=== PATIENT | male | born 1960 | race Caucasian/White ===

== ENCOUNTER 2017-05-29 09:31 | Inpatient (IN) | payer OTHER ==
[~2017-05-29] VITALS: Ht 172.7 cm; Wt 52.8 kg
[~2017-05-29 09:31] MED LIST: PROT40TA PO
[2017-05-29 09:33] VITALS: BP 150/84; PULSE 69; RESP 16; TEMP 98.7; O2SAT 96
[2017-05-29] MEDS ORDERED: SODIUM CHLOR 0.9% 1000 ML INJ 1,000 ML IV SCH (09:55)
[2017-05-29] MEDS ORDERED: ZANT150T2 PO (09:56)
[2017-05-29] MEDS ORDERED: PANTOPRAZOLE SODIUM 40 MG VIAL IVP ONE (10:00)
[2017-05-29] MEDS ORDERED: SODIUM CHLORIDE 0.9% FLUSH 10 ML FLUSH IV FLUSH PRN ×2 (10:00→13:00)
[2017-05-29] MEDS ORDERED: ONDANSETRON HCL 4 MG/2 ML VIAL IVP ONE (10:00)
--- NOTE | 2017-05-29 10:03 | PD ---
HPI Chief Complaint: GI Complaint Time Seen by Provider: 09:50 Travel History International Travel<30 days: No Contact w/Intl Traveler<30days: No Traveled to known affect area: No History of Present Illness HPI Patient is 56-year-old male with history of Lizzy fundiplication, achalasia who underwent Elisa's esophagomytomy with partial Toupet wrap, presents to ER with complaints of dysphagia. Patient reports that he has been operated on by Dr. Machado in the past, reports that his last surgery was 2 years ago. Patient reports that he has not follow-up with anyone since then, he does take a Pepcid daily. Patient reports that since Saturday, patient has been having difficulty with swallowing. Reports that his last full meal was Saturday night, he has not been able to eat anything since then. Patient is able to drink fluids with difficulty. Patient here with concerns for dysphagia. PFSH Past Medical History Blood Disorders: No Cancer: No Cardiovascular Problems: No Diminished Hearing: No Endocrine: No Gastrointestinal Disorders: Yes (ESOPHAGEAL STRICTURE) Genitourinary: No Immune Disorder: No Musculoskeletal: Yes Neurologic: No Psychiatric: No Reproductive: No Respiratory: No Past Surgical History Abdominal Surgery: Yes (ACHALASIA. stomach muscle repair, mesh around esophagus ) Pacemaker: No Other Surgery: Yes (TENDON REPAIR LEFT HAND) Social History Alcohol Use: Yes (occ) Tobacco Use: Yes Substance Use: Yes (hx crack cocaine (x 25 years) "Clean x 12 years") Allergies-Medications (Allergen,Severity, Reaction): Coded Allergies: No Known Allergies (Unverified , 05/29/17) Reported Meds & Prescriptions Reported Meds & Active Scripts Active Reported Zantac (Ranitidine HCl) 150 Mg Tab 150 Mg PO DAILY Review of Systems General / Constitutional: No: Fever Eyes: No: Visual changes HENT: No: Headaches Cardiovascular: No: Chest Pain or Discomfort Respiratory: No: Shortness of Breath Gastrointestinal: Positive: Nausea, Vomiting, Dysphagia, No: Abdominal Pain Genitourinary: No: Dysuria Musculoskeletal: No: Pain Skin: No Rash Neurologic: No: Weakness Psychiatric: No: Depression Endocrine: No: Polydipsia Hematologic/Lymphatic: No: Easy Bruising Physical Exam Narrative GENERAL: mild distress SKIN: Focused skin assessment warm/dry. HEAD: Atraumatic. Normocephalic. EYES: Pupils equal and round. No scleral icterus. No injection or drainage. ENT: No nasal bleeding or discharge. Mucous membranes pink and moist. NECK: Trachea midline. No JVD. CARDIOVASCULAR: Regular rate and rhythm. No murmur appreciated. RESPIRATORY: No accessory muscle use. Clear to auscultation. Breath sounds equal bilaterally. GASTROINTESTINAL: Abdomen soft, non-tender, nondistended. Hepatic and splenic margins not palpable. MUSCULOSKELETAL: No obvious deformities. No clubbing. No cyanosis. No edema. NEUROLOGICAL: Awake and alert. Motor grossly within normal limits. Normal speech. PSYCHIATRIC: Appropriate mood and affect; insight and judgment normal. Data Data Last Documented VS Vital Signs Date Time Temp Pulse Resp B/P Pulse Ox O2 Delivery O2 Flow Rate FiO2 05/29/17 12:15 61 18 145/81 96 Room Air 05/29/17 09:33 98.7 Orders Complete Blood Count With Diff (05/29/17 09:55) Comprehensive Metabolic Panel (05/29/17 09:55) Lipase (05/29/17 09:55) Prothrombin Time / Inr (Pt) (05/29/17 09:55) Act Partial Throm Time (Ptt) (05/29/17 09:55) Urinalysis - C+S If Indicated (05/29/17 09:55) Iv Access Insert/Monitor (05/29/17 09:55) Ecg Monitoring (05/29/17 09:55) NPO (05/29/17 09:55) Sodium Chlor 0.9% 1000 Ml Inj (Ns 1000 M (05/29/17 09:55) Sodium Chloride 0.9% Flush (Ns Flush) (05/29/17 10:00) Electrocardiogram (05/29/17 09:55) Chest, Single Ap (05/29/17 09:55) Ondansetron Inj (Zofran Inj) (05/29/17 10:00) Pantoprazole Inj (Protonix Inj) (05/29/17 10:00) Barium Swallow (05/29/17 ) Labs Laboratory Tests Test 05/29/17 05/29/17 10:10 11:10 White Blood Count 12.3 TH/MM3 Red Blood Count 4.74 MIL/MM3 Hemoglobin 14.8 GM/DL Hematocrit 44.4 % Mean Corpuscular Volume 93.7 FL Mean Corpuscular Hemoglobin 31.4 PG Mean Corpuscular Hemoglobin 33.5 % Concent Red Cell Distribution Width 13.2 % Platelet Count 295 TH/MM3 Mean Platelet Volume 7.4 FL Neutrophils (%) (Auto) 75.1 % Lymphocytes (%) (Auto) 12.2 % Monocytes (%) (Auto) 10.3 % Eosinophils (%) (Auto) 2.0 % Basophils (%) (Auto) 0.4 % Neutrophils # (Auto) 9.2 TH/MM3 Lymphocytes # (Auto) 1.5 TH/MM3 Monocytes # (Auto) 1.3 TH/MM3 Eosinophils # (Auto) 0.2 TH/MM3 Basophils # (Auto) 0.0 TH/MM3 CBC Comment DIFF FINAL Differential Comment Prothrombin Time 10.4 SEC Prothromb Time International 0.9 RATIO Ratio Activated Partial 23.1 SEC Thromboplast Time Sodium Level 141 MEQ/L Potassium Level 4.0 MEQ/L Chloride Level 108 MEQ/L Carbon Dioxide Level 27.9 MEQ/L Anion Gap 5 MEQ/L Blood Urea Nitrogen 9 MG/DL Creatinine 0.91 MG/DL Estimat Glomerular Filtration 87 ML/MIN Rate Random Glucose 99 MG/DL Calcium Level 8.2 MG/DL Total Bilirubin 0.5 MG/DL Aspartate Amino Transf 19 U/L (AST/SGOT) Alanine Aminotransferase 20 U/L (ALT/SGPT) Alkaline Phosphatase 74 U/L Total Protein 6.9 GM/DL Albumin 3.5 GM/DL Lipase 94 U/L Urine Color YELLOW Urine Turbidity CLEAR Urine pH 6.0 Urine Specific [place] 1.009 Urine Protein NEG mg/dL Urine Glucose (UA) NEG mg/dL Urine Ketones NEG mg/dL Urine Occult Blood NEG Urine Nitrite NEG Urine Bilirubin NEG Urine Urobilinogen LESS THAN 2.0 MG/DL Urine Leukocyte Esterase NEG Urine RBC 2 /hpf Urine WBC 1 /hpf Urine Mucus FEW /lpf Microscopic Urinalysis Comment CULT NOT INDICATED MDM Medical Decision Making Medical Screen Exam Complete: Yes Emergency Medical Condition: Yes Medical Record Reviewed: Yes Interpretation(s) EKG at 1019: Sinus bradycardia at 57bpm, qt/qtc: 462/457, no acute st or t wave changes Vital Signs Date Time Temp Pulse Resp B/P Pulse Ox O2 Delivery O2 Flow Rate FiO2 05/29/17 09:53 18 05/29/17 09:33 98.7 69 16 150/84 96 Room Air Laboratory Tests Test 05/29/17 05/29/17 10:10 11:10 White Blood Count 12.3 TH/MM3 (4.0-11.0) Red Blood Count 4.74 MIL/MM3 (4.50-5.90) Hemoglobin 14.8 GM/DL (13.0-17.0) Hematocrit 44.4 % (39.0-51.0) Mean Corpuscular Volume 93.7 FL (80.0-100.0) Mean Corpuscular Hemoglobin 31.4 PG (27.0-34.0) Mean Corpuscular Hemoglobin 33.5 % Concent (32.0-36.0) Red Cell Distribution Width 13.2 % (11.6-17.2) Platelet Count 295 TH/MM3 (150-450) Mean Platelet Volume 7.4 FL (7.0-11.0) Neutrophils (%) (Auto) 75.1 % (16.0-70.0) Lymphocytes (%) (Auto) 12.2 % (9.0-44.0) Monocytes (%) (Auto) 10.3 % (0.0-8.0) Eosinophils (%) (Auto) 2.0 % (0.0-4.0) Basophils (%) (Auto) 0.4 % (0.0-2.0) Neutrophils # (Auto) 9.2 TH/MM3 (1.8-7.7) Lymphocytes # (Auto) 1.5 TH/MM3 (1.0-4.8) Monocytes # (Auto) 1.3 TH/MM3 (0-0.9) Eosinophils # (Auto) 0.2 TH/MM3 (0-0.4) Basophils # (Auto) 0.0 TH/MM3 (0-0.2) CBC Comment DIFF FINAL Differential Comment Prothrombin Time 10.4 SEC (9.8-11.6) Prothromb Time International 0.9 RATIO Ratio Activated Partial 23.1 SEC Thromboplast Time (24.3-30.1) Sodium Level 141 MEQ/L (136-145) Potassium Level 4.0 MEQ/L (3.5-5.1) Chloride Level 108 MEQ/L (98-107) Carbon Dioxide Level 27.9 MEQ/L (21.0-32.0) Anion Gap 5 MEQ/L (5-15) Blood Urea Nitrogen 9 MG/DL (7-18) Creatinine 0.91 MG/DL (0.60-1.30) Estimat Glomerular Filtration 87 ML/MIN (>89) Rate Random Glucose 99 MG/DL (74-106) Calcium Level 8.2 MG/DL (8.5-10.1) Total Bilirubin 0.5 MG/DL (0.2-1.0) Aspartate Amino Transf 19 U/L (15-37) (AST/SGOT) Alanine Aminotransferase 20 U/L (12-78) (ALT/SGPT) Alkaline Phosphatase 74 U/L (45-117) Total Protein 6.9 GM/DL (6.4-8.2) Albumin 3.5 GM/DL (3.4-5.0) Lipase 94 U/L (73-393) Urine Color YELLOW (YELLW/STRAW) Urine Turbidity CLEAR (CLEAR) Urine pH 6.0 (5.0-8.5) Urine Specific [place] 1.009 (1.002-1.035) Urine Protein NEG mg/dL (NEG-TRACE) Urine Glucose (UA) NEG mg/dL (NEG) Urine Ketones NEG mg/dL (NEG) Urine Occult Blood NEG (NEG) Urine Nitrite NEG (NEG) Urine Bilirubin NEG (NEG) Urine Urobilinogen LESS THAN 2.0 MG/DL (LESS THAN 2.0) Urine Leukocyte Esterase NEG (NEG) Urine RBC 2 /hpf (0-3) Urine WBC 1 /hpf (0-5) Urine Mucus FEW /lpf (OCC) Microscopic Urinalysis Comment CULT NOT INDICATED Last Impressions Chest X-Ray 05/29/17 0955 Signed Impressions: Service Date/Time: Saturday, May 29, 2017 10:06 - CONCLUSION: 1. COPD changes. 2. No free air or pleural effusion identified. Mook Palacios MD Differential Diagnosis Differential includes achalasia, esophageal strictures, electrolyte abnormality Narrative Course 56-year-old male with history of achalasia, presents to emergency room complaints of worsening dysphagia since Saturday. Reports that he is unable to eat any solid food since then, he is able to drink some fluids without difficulty. Patient reports that he has been operated at [place] [address] Barillas, reports that he has not had any follow up since then. Patient with no fevers or chills, no chest pain or shortness of breath, reports difficulty with swallowing. Ultimately, patient will require a barium study Previous records reviewed, plan to obtain labs and studies. Patient was seen by Dr. Salas with GI in the past Patient was seen by Dr. Barillas with Cardiovascular Surgery in the past Vital Signs Date Time Temp Pulse Resp B/P Pulse Ox O2 Delivery O2 Flow Rate FiO2 05/29/17 09:53 18 05/29/17 09:33 98.7 69 16 150/84 96 Room Air Laboratory Tests Test 05/29/17 05/29/17 10:10 11:10 White Blood Count 12.3 TH/MM3 (4.0-11.0) Red Blood Count 4.74 MIL/MM3 (4.50-5.90) Hemoglobin 14.8 GM/DL (13.0-17.0) Hematocrit 44.4 % (39.0-51.0) Mean Corpuscular Volume 93.7 FL (80.0-100.0) Mean Corpuscular Hemoglobin 31.4 PG (27.0-34.0) Mean Corpuscular Hemoglobin 33.5 % Concent (32.0-36.0) Red Cell Distribution Width 13.2 % (11.6-17.2) Platelet Count 295 TH/MM3 (150-450) Mean Platelet Volume 7.4 FL (7.0-11.0) Neutrophils (%) (Auto) 75.1 % (16.0-70.0) Lymphocytes (%) (Auto) 12.2 % (9.0-44.0) Monocytes (%) (Auto) 10.3 % (0.0-8.0) Eosinophils (%) (Auto) 2.0 % (0.0-4.0) Basophils (%) (Auto) 0.4 % (0.0-2.0) Neutrophils # (Auto) 9.2 TH/MM3 (1.8-7.7) Lymphocytes # (Auto) 1.5 TH/MM3 (1.0-4.8) Monocytes # (Auto) 1.3 TH/MM3 (0-0.9) Eosinophils # (Auto) 0.2 TH/MM3 (0-0.4) Basophils # (Auto) 0.0 TH/MM3 (0-0.2) CBC Comment DIFF FINAL Differential Comment Prothrombin Time 10.4 SEC (9.8-11.6) Prothromb Time International 0.9 RATIO Ratio Activated Partial 23.1 SEC Thromboplast Time (24.3-30.1) Sodium Level 141 MEQ/L (136-145) Potassium Level 4.0 MEQ/L (3.5-5.1) Chloride Level 108 MEQ/L (98-107) Carbon Dioxide Level 27.9 MEQ/L (21.0-32.0) Anion Gap 5 MEQ/L (5-15) Blood Urea Nitrogen 9 MG/DL (7-18) Creatinine 0.91 MG/DL (0.60-1.30) Estimat Glomerular Filtration 87 ML/MIN (>89) Rate Random Glucose 99 MG/DL (74-106) Calcium Level 8.2 MG/DL (8.5-10.1) Total Bilirubin 0.5 MG/DL (0.2-1.0) Aspartate Amino Transf 19 U/L (15-37) (AST/SGOT) Alanine Aminotransferase 20 U/L (12-78) (ALT/SGPT) Alkaline Phosphatase 74 U/L (45-117) Total Protein 6.9 GM/DL (6.4-8.2) Albumin 3.5 GM/DL (3.4-5.0) Lipase 94 U/L (73-393) Urine Color YELLOW (YELLW/STRAW) Urine Turbidity CLEAR (CLEAR) Urine pH 6.0 (5.0-8.5) Urine Specific [place] 1.009 (1.002-1.035) Urine Protein NEG mg/dL (NEG-TRACE) Urine Glucose (UA) NEG mg/dL (NEG) Urine Ketones NEG mg/dL (NEG) Urine Occult Blood NEG (NEG) Urine Nitrite NEG (NEG) Urine Bilirubin NEG (NEG) Urine Urobilinogen LESS THAN 2.0 MG/DL (LESS THAN 2.0) Urine Leukocyte Esterase NEG (NEG) Urine RBC 2 /hpf (0-3) Urine WBC 1 /hpf (0-5) Urine Mucus FEW /lpf (OCC) Microscopic Urinalysis Comment CULT NOT INDICATED Last Impressions Chest X-Ray 05/29/17 0955 Signed Impressions: Service Date/Time: Monday, May 29, 2017 10:06 - CONCLUSION: 1. COPD changes. 2. No free air or pleural effusion identified. Mook Palacios MD Barium Swallow with distal esophageal stricture, patient will require admission to the hospital for esophageal dilation. Case reviewed with Dr. Rodriguez who accepts patient to service Diagnosis Primary Impression: Esophageal stricture Admitting Information Admitting Physician Requests: Rachele Scott DO May 29, 2017 10:03
[2017-05-29 10:28] LABS: AUTOMATED NEUTROPHIL # 9.2 TH/MM3 (1.8-7.7); BASOPHIL % 0.4 % (0.0-2.0); EOSINOPHIL # 0.2 TH/MM3 (0-0.4); HEMATOCRIT 44.4 % (39.0-51.0); HEMO FLAGS DIFF FINAL; LYMPH % 12.2 % (9.0-44.0); LYMPHOCYTE # 1.5 TH/MM3 (1.0-4.8); MEAN CELL VOLUME 93.7 FL (80.0-100.0); MEAN CORPUSCULAR HEMOGLOBIN 31.4 PG (27.0-34.0); MEAN CORPUSCULAR HGB CONC 33.5 % (32.0-36.0); MONO % 10.3 % (0.0-8.0); NEUT % 75.1 % (16.0-70.0); PLATELET COUNT 295 TH/MM3 (150-450); RED BLOOD COUNT 4.74 MIL/MM3 (4.50-5.90); RED CELL DISTRIBUTION WIDTH 13.2 % (11.6-17.2); WHITE BLOOD COUNT 12.3 TH/MM3 (4.0-11.0)
--- NOTE | 2017-05-29 10:30 | RADRPT ---
EXAM DATE/TIME: 05/29/2017 10:06 [facility] COMPARISON: GI LAB WIRE DILATATION, August 29, 2015, 13:31. INDICATIONS : Dysphagia for 5 days. Evaluate for free air. MEDICAL HISTORY : History of esophageal strictures. SURGICAL HISTORY : Achalasia with stomach muscle repair an mesh around the esophagus. ENCOUNTER: Initial ACUITY: 4 - 6 days PAIN SCORE: 2/10 LOCATION: upper chest FINDINGS: The heart is normal in size. The mediastinal contours are within normal limits. There are moderate CO PD changes. No free air is seen. No pleural effusion is present. The visualized bony structures demon strate degenerative changes in the left shoulder left a.c. joint but are otherwise intact. CONCLUSION: 1. COPD changes. 2. No free air or pleural effusion identified. Mook Palacios MD on May 29, 2017 at 10:28 Board Certified Radiologist. This report was verified electronically.
[2017-05-29 11:28] LABS: BLOOD, URINE NEG (NEG); COMMENT (UR) CULT NOT INDICATED; CULTURE IF INDICATED CULT NOT INDICATED; GLUCOSE,URINE NEG (NEG); KETONE, URINE NEG (NEG); MUCUS URINE FEW /lpf (OCC); NITRITE,URINE NEG (NEG); URINE COLOR YELLOW (YELLW/STRAW)
[2017-05-29 11:40] LABS: ALT (GPT) 20 U/L (12-78); ANION GAP 5 MEQ/L (5-15); AST (GOT) 19 U/L (15-37); BICARBONATE 27.9 MEQ/L (21.0-32.0); BLOOD UREA NITROGEN 9 MG/DL (7-18); CHLORIDE 108 MEQ/L (98-107); GLOMERULAR FILTRATION RATE 87 ML/MIN (>89); SODIUM (NA) 141 MEQ/L (136-145)
[2017-05-29 11:42] LABS: ALKALINE PHOSPHATASE 74 U/L (45-117); APTT (PATIENT) 23.1 SEC (24.3-30.1); INTERNATIONAL NORMALIZED RATIO 0.9 RATIO; PROTHROMBIN TIME - PATIENT 10.4 SEC (9.8-11.6); TOTAL BILIRUBIN ADULT 0.5 MG/DL (0.2-1.0)
[2017-05-29] MEDS ORDERED: PHENYLEPH/NS 1000 MCG/10 ML SYR IV ONE (12:00)
[2017-05-29] MEDS ORDERED: ePHEDrine/NS 25 MG/5 ML SYR IV ONE (12:00)
--- NOTE | 2017-05-29 12:10 | RADRPT ---
EXAM DATE/TIME: 05/29/2017 11:43 [facility] COMPARISON: BARIUM SWALLOW, August 28, 2015, 14:14. INDICATIONS : Dysphagia. History of esophageal stricture or achalasia. Patient is status post recent dilatation. FLUORO TIME: 1.0 minutes IMAGE COUNT: 12 CONTRAST: 1. E-Z HD Barium Sulfate (98% w/w) MEDICAL HISTORY : Achalasia, esophageal stricture SURGICAL HISTORY : Lizzy fundiplication, stomach muscle repair, Elisa's esophagomytomy ENCOUNTER: Initial ACUITY: 4 - 6 days PAIN SCORE: 0/10 LOCATION: Bilateral neck FINDINGS: Air-contrast views of the hypopharynx demonstrate a normal mucosal surface without filling defect. R apid sequence images of the hypopharynx and cervical esophagus during the passage of barium demonstra te a normal swallowing function. No evidence of aspiration. Multiphasic examination of the esophagu s demonstrates diffuse dilatation of the esophagus without significant change. There is an apparent d istal esophageal stricture and noted and there is residual food in the mid and distal esophagus. with out evidence of hiatal hernia. CONCLUSION: 1. Apparent distal esophageal stricture again noted. 2. The esophagus remains diffusely mildly dilated. There is residual food. Yonatan Rosenberg MD on May 29, 2017 at 12:05 Board Certified Radiologist. This report was verified electronically.
[2017-05-29 12:15] VITALS: BP 145/81; PULSE 61; RESP 18; O2SAT 96
[2017-05-29] MEDS ORDERED: MAGNESIUM HYDROXIDE SUSP 30 ML CUP PO PRN (13:00)
[2017-05-29] MEDS ORDERED: BISACODYL 10 MG SUPP RECTAL PRN (13:00)
[2017-05-29] MEDS ORDERED: ACETAMINOPHEN 325 MG TAB PO PRN (13:00)
[2017-05-29] MEDS ORDERED: LACTULOSE SYRUP 20 GM/30 ML CUP PO PRN (13:00)
[2017-05-29] MEDS ORDERED: SENNOSIDES 8.6 MG TAB PO PRN (13:00)
[2017-05-29] MEDS ORDERED: NALOXONE HCL 0.4 MG/ML AMP IV PRN (13:00)
--- NOTE | 2017-05-29 14:06 | PD.CONS ---
HPI History of Present Illness This is a 56 year old male with hx smiley fundoplication, achalasia s/p esophagomyotomy who presented with epigastric pain, and trouble swallowing. He woke up this morning with n/v. Has had difficulty swallowing since Saturday. He had an EGD with dilatation here a few years ago and that gave him relief. NO blood in emesis, blood in stool. Admits constipation this morning. He hasn' t checked his weight so does not know if he's lost weight but he knows he has not gained weight. (Chelsea Riley) PFSH Past Medical History none Past Surgical History smiley fundoplication esophagomyotomy (Chelsea Riley) Coded Allergies: No Known Allergies (Unverified , 05/29/17) Family History DM Social History drinks 2 beers nightly smokes 1ppd regular use marijuana every other day or weekly (Chelsea Riley) Review of Systems Constitutional: DENIES: Fever Eyes: DENIES: Blurred vision Ears, nose, mouth, throat: DENIES: Hearing loss Respiratory: DENIES: Hemoptysis Cardiovascular: DENIES: Chest pain Gastrointestinal: COMPLAINS OF: Abdominal pain, Constipation, Nausea, Vomiting , DENIES: Black stools, Bloody stools, Diarrhea, Hematemesis Genitourinary: DENIES: Hematuria Musculoskeletal: DENIES: Joint Swelling Integumentary: DENIES: Jaundice Neurologic: DENIES: Abnormal gait Psychiatric: DENIES: Confusion (Chelsea Riley) GI Exam Vitals I&O Vital Signs Date Time Temp Pulse Resp B/P Pulse Ox O2 Delivery O2 Flow Rate FiO2 05/29/17 12:15 61 18 145/81 96 Room Air 05/29/17 09:53 18 05/29/17 09:33 98.7 69 16 150/84 96 Room Air I/O 05/28/17 05/28/17 05/28/17 05/29/17 05/29/17 05/29/17 07:00 15:00 23:00 07:00 15:00 23:00 Intake Total 1000 ml Output Total 250 ml Balance 750 ml Intake IV Total 1000 ml Output Urine Total 250 ml Imaging Last Impressions Chest X-Ray 05/29/1737 Signed Impressions: Service Date/Time: Monday, May 29, 2017 10:06 - CONCLUSION: 1. COPD changes. 2. No free air or pleural effusion identified. Mook Palacios MD Barium Swallow X-Ray 05/29/17 0000 Signed Impressions: Service Date/Time: Monday, May 29, 2017 11:43 - CONCLUSION: 1. Apparent distal esophageal stricture again noted. 2. The esophagus remains diffusely mildly dilated. There is residual food. Yonatan Rosenberg MD Laboratory Test 05/29/17 05/29/17 10:10 11:10 White Blood Count 12.3 TH/MM3 Red Blood Count 4.74 MIL/MM3 Hemoglobin 14.8 GM/DL Hematocrit 44.4 % Mean Corpuscular Volume 93.7 FL Mean Corpuscular Hemoglobin 31.4 PG Mean Corpuscular Hemoglobin 33.5 % Concent Red Cell Distribution Width 13.2 % Platelet Count 295 TH/MM3 Mean Platelet Volume 7.4 FL Neutrophils (%) (Auto) 75.1 % Lymphocytes (%) (Auto) 12.2 % Monocytes (%) (Auto) 10.3 % Eosinophils (%) (Auto) 2.0 % Basophils (%) (Auto) 0.4 % Neutrophils # (Auto) 9.2 TH/MM3 Lymphocytes # (Auto) 1.5 TH/MM3 Monocytes # (Auto) 1.3 TH/MM3 Eosinophils # (Auto) 0.2 TH/MM3 Basophils # (Auto) 0.0 TH/MM3 CBC Comment DIFF FINAL Differential Comment Prothrombin Time 10.4 SEC Prothromb Time International 0.9 RATIO Ratio Activated Partial 23.1 SEC Thromboplast Time Sodium Level 141 MEQ/L Potassium Level 4.0 MEQ/L Chloride Level 108 MEQ/L Carbon Dioxide Level 27.9 MEQ/L Anion Gap 5 MEQ/L Blood Urea Nitrogen 9 MG/DL Creatinine 0.91 MG/DL Estimat Glomerular Filtration 87 ML/MIN Rate Random Glucose 99 MG/DL Calcium Level 8.2 MG/DL Total Bilirubin 0.5 MG/DL Aspartate Amino Transf 19 U/L (AST/SGOT) Alanine Aminotransferase 20 U/L (ALT/SGPT) Alkaline Phosphatase 74 U/L Total Protein 6.9 GM/DL Albumin 3.5 GM/DL Lipase 94 U/L Urine Color YELLOW Urine Turbidity CLEAR Urine pH 6.0 Urine Specific [place] 1.009 Urine Protein NEG mg/dL Urine Glucose (UA) NEG mg/dL Urine Ketones NEG mg/dL Urine Occult Blood NEG Urine Nitrite NEG Urine Bilirubin NEG Urine Urobilinogen LESS THAN 2.0 MG/DL Urine Leukocyte Esterase NEG Urine RBC 2 /hpf Urine WBC 1 /hpf Urine Mucus FEW /lpf Microscopic Urinalysis Comment CULT NOT INDICATED Physical Examination HEENT: PERRL; normocephalic; atraumatic; no jaundice. CHEST: CTA CARDIAC: RRR ABDOMEN: Soft, nondistended, epigastric TTP; no hepatosplenomegaly; bowel sounds are present in all four quadrants. EXTREMITIES: No clubbing, cyanosis, or edema. SKIN: Normal; no rash; no jaundice. FAMILY COURT JUSTICE: No focal deficits; alert and oriented times three. (Chelsea Riley) Assessment and Plan Plan ASSESSMENT - dysphagia, epigatric pain - esophageal stricture per Ba swallow. hx achalasia s/p esophagomyotomy, has had smiley PLAN - EGD with dilatation today - obtain consents - NPO - further recs to follow This pt seen by myself and Dr Nicole and this note is written on his behalf ( Chelsea Riley) Physician Comments Patient seen and examined Agree with above Continue with current supportive care Monitor labs We will proceed with EGD and dilation Further recommendations after the procedure (Paulie Nicole MD) Chelsea Riley May 29, 2017 14:06 Paulie Nicole MD May 29, 2017 15:46
[2017-05-29 14:15] VITALS: BP 124/81; PULSE 76; RESP 18; O2SAT 96
[2017-05-29] MEDS ORDERED: PROPOFOL 200 MG/20 ML AMP IV ONE (14:51)
[2017-05-29] MEDS ORDERED: DO NOT ADM ANY ANTICOAGULANT DRUGS PRN (15:37)
[2017-05-29] MEDS ORDERED: *ONDANSETRON 4 MG VIAL PERIprocedural Use ONLY ONE (15:43)
--- NOTE | 2017-05-29 16:14 | PD.PROCEDR ---
GI Procedure REFERRING PHYSICIAN Dr. Ruvalcaba PROCEDURE PERFORMED EGD with esophageal dilation with an achalasia balloon dilator INDICATION FOR PROCEDURE Dysphagia esophageal stricture PROCEDURE: The procedure, risks and benefits were discussed with Mr. Coronel and informed consent was obtained. Anesthesia sedated him with Diprivan. He was placed in the left lateral decubitus position. EGD: The Pentax videoscope was introduced through the oropharynx and advanced to the second portion of the duodenum under direct visualization. Retroflexion was performed in the stomach. FINDINGS: Esophagus this appeared to be unremarkable there was a tightness at the end of the esophagus but it was traversable with minimal resistance the barium swallow had shown almost a bird beak configuration and so I dilated using the achalasia balloon size 30 mm post dilatation view was satisfactory with no tear or bleeding the rest of the esophagus was unremarkable Stomach this was normal Duodenum this was normal ESTIMATED BLOOD LOSS: None SPECIMENS REMOVED: None COMPLICATIONS: None IMPRESSION: Esophageal stricture History of achalasia PLAN: Recommend soft mechanical diet Okay for discharge from a GI standpoint Follow-up with GI in 2 weeks Paulie Nicole MD May 29, 2017 16:14
[2017-05-29 17:18] VITALS: BP 130/72; PULSE 69; RESP 18; TEMP 98.7; O2SAT 97
--- NOTE | 2017-05-29 17:46 | HHI.HP ---
[facility] No Primary Care Physician Admission Diagnosis Esophageal stricture Diagnoses: Chief Complaint: dysphagia Travel History International Travel<30 Days: No Contact w/Intl Traveler <30 Da: No Traveled to Known Affected Are: No History of Present Illness Written by Lizzie Jones, acting as scribe for Dr. Rodriguez on 05/29/17 at 17:46. This note was transcribed by scribe LUI Gorssman. I, Dr. Ho Rodriguez personally performed the history, physical exam, and medical decision making; and confirmed the accuracy of the information in the transcribed note. Authenticated by Dr. Ho Rodriguez on 05/29/17 at 23:32. 56-year-old male with history of achalasia, Lizzy fundoplication, esophagomyotomy, esophageal stricture s/p dilatation 2014, presents with a 5 day history of dysphagia. The patient reports he ate his last normal meal on Thursday 05/24. On Friday 05/25, he started having dysphagia with both liquids and solids, associated with subsequent nausea and vomiting. He also developed worsening epigastric abdominal pain especially after meals. He does report an episode of diarrhea on Saturday but none since. He has a history of esophageal stricture s/p dilatation in and he has been doing very well since then. He believes his stricture has returned. Denies any recent fevers/chills. Denies any chest pain, shortness of breath, or urinary complaints. He was seen by gastroenterology shortly after admission and taken to GI lab, underwent esophageal stricture dilatation. He is now seen post procedure. He has tolerated liquids well. His abdominal pain has resolved and he denies any dysphagia. He has been cleared for discharge by gastroenterology. The patient will be attempting dinner, and will be discharged if he tolerates well. The patient is very happy with this plan and feels ready for discharge. Review of Systems Except as stated in HPI: all other systems reviewed are Neg Past Family Social History Past Medical History achalasia esophageal stricture Past Surgical History Lizzy fundoplication esophagomyotomy esophageal dilatation Reported Medications Zantac (Ranitidine HCl) 150 Mg Tab 150 Mg PO DAILY Allergies: Coded Allergies: No Known Allergies (Unverified , 05/29/17) Active Ordered Medications Current Medications Medications (Trade) Dose Ordered Sig/Mariely Route Start Time Stop Time Status Last Admin (NS 1000 ml Inj) 1,000 ml @ 100 mls/hr Q10H IV 05/29/17 14:00 (NS Flush) 2 ml UNSCH PRN IV FLUSH 05/29/17 13:00 (NS Flush) 2 ml BID IV FLUSH 05/29/17 21:00 (Zofran Inj) 4 mg Q6H PRN IVP 05/29/17 13:00 (Tylenol) 650 mg Q6H PRN PO 05/29/17 13:00 ([place] 5-325 Mg) 1 tab Q4H PRN PO 05/29/17 13:00 (Morphine Inj) 2 mg Q3H PRN IV 05/29/17 13:00 (Narcan Inj) 0.4 mg UNSCH PRN IV 05/29/17 13:00 (Destini-Colace) 1 tab BID PO 05/29/17 21:00 (Milk Of Magnesia Liq) 30 ml Q12H PRN PO 05/29/17 13:00 (Senokot) 17.2 mg Q12H PRN PO 05/29/17 13:00 (Dulcolax Supp) 10 mg DAILY PRN RECTAL 05/29/17 13:00 (Lactulose Liq) 30 ml DAILY PRN PO 05/29/17 13:00 Miscellaneous Information ALL NURSING DEPARTME... UNSCH PRN .XX 05/29/17 15:37 05/30/17 15:36 Family History Positive for diabetes Social History Drinks alcohol, 2 beers nightly smokes tobacco 1 PPD x45 years regular use marijuana every other day or weekly Physical Exam Vital Signs Vital Signs Date Time Temp Pulse Resp B/P Pulse Ox O2 Delivery O2 Flow Rate FiO2 05/29/17 17:18 98.7 69 18 130/72 97 05/29/17 16:11 97.8 70 16 128/63 95 05/29/17 16:00 69 17 115/68 95 05/29/17 15:45 71 17 105/60 97 05/29/17 15:37 97.6 85 15 98/60 98 05/29/17 14:15 76 18 124/81 96 Room Air 05/29/17 12:15 61 18 145/81 96 Room Air 05/29/17 09:53 18 05/29/17 09:33 98.7 69 16 150/84 96 Room Air Physical Exam GENERAL: Well-nourished, well-developed pleasant middle aged male patient in [facility]. SKIN: Warm and dry. No rash. HEAD: Normocephalic. Atraumatic. EYES: Pupils equal and round. No scleral icterus. No injection or drainage. ENT: No nasal bleeding or discharge. Mucous membranes pink and moist. NECK: Supple. Trachea midline. CARDIOVASCULAR: Regular rate and rhythm. S1, S2 noted. No murmur appreciated. RESPIRATORY: No accessory muscle use. Clear to auscultation. Breath sounds equal bilaterally. GASTROINTESTINAL: Abdomen soft, non-tender, nondistended. Normoactive bowel sounds x4. MUSCULOSKELETAL: No obvious deformities. Extremities without clubbing, cyanosis , or edema. NEUROLOGICAL: Awake and alert. No obvious cranial nerve deficits. Motor grossly within normal limits. Normal speech. PSYCHIATRIC: Appropriate mood and affect; insight and judgment normal. Laboratory Laboratory Tests Test 05/29/17 05/29/17 10:10 11:10 White Blood Count 12.3 Red Blood Count 4.74 Hemoglobin 14.8 Hematocrit 44.4 Mean Corpuscular Volume 93.7 Mean Corpuscular Hemoglobin 31.4 Mean Corpuscular Hemoglobin 33.5 Concent Red Cell Distribution Width 13.2 Platelet Count 295 Mean Platelet Volume 7.4 Neutrophils (%) (Auto) 75.1 Lymphocytes (%) (Auto) 12.2 Monocytes (%) (Auto) 10.3 Eosinophils (%) (Auto) 2.0 Basophils (%) (Auto) 0.4 Neutrophils # (Auto) 9.2 Lymphocytes # (Auto) 1.5 Monocytes # (Auto) 1.3 Eosinophils # (Auto) 0.2 Basophils # (Auto) 0.0 CBC Comment DIFF FINAL Differential Comment Prothrombin Time 10.4 Prothromb Time International 0.9 Ratio Activated Partial 23.1 Thromboplast Time Sodium Level 141 Potassium Level 4.0 Chloride Level 108 Carbon Dioxide Level 27.9 Anion Gap 5 Blood Urea Nitrogen 9 Creatinine 0.91 Estimat Glomerular Filtration 87 Rate Random Glucose 99 Calcium Level 8.2 Total Bilirubin 0.5 Aspartate Amino Transf 19 (AST/SGOT) Alanine Aminotransferase 20 (ALT/SGPT) Alkaline Phosphatase 74 Total Protein 6.9 Albumin 3.5 Lipase 94 Urine Color YELLOW Urine Turbidity CLEAR Urine pH 6.0 Urine Specific [place] 1.009 Urine Protein NEG Urine Glucose (UA) NEG Urine Ketones NEG Urine Occult Blood NEG Urine Nitrite NEG Urine Bilirubin NEG Urine Urobilinogen LESS THAN 2.0 Urine Leukocyte Esterase NEG Urine RBC 2 Urine WBC 1 Urine Mucus FEW Microscopic Urinalysis Comment CULT NOT INDICATED Result Diagram: 05/29/17 1010 05/29/17 1010 Imaging Last Impressions Chest X-Ray 05/29/17 0955 Signed Impressions: Service Date/Time: Monday, May 29, 2017 10:06 - CONCLUSION: 1. COPD changes. 2. No free air or pleural effusion identified. Mook Palacios MD Barium Swallow X-Ray 05/29/17 0000 Signed Impressions: Service Date/Time: Saturday, May 29, 2017 11:43 - CONCLUSION: 1. Apparent distal esophageal stricture again noted. 2. The esophagus remains diffusely mildly dilated. There is residual food. Yonatan Rosenberg MD Assessment and Plan Problem List: (1) Esophageal stricture ICD Code: K22.2 Status: Acute (2) S/P dilatation of esophageal stricture ICD Code: Z98.890 Status: Acute Assessment and Plan 56-year-old male with history of achalasia, Lizzy fundoplication, esophagomyotomy, esophageal stricture s/p dilatation 2014, presents with a 5 day history of dysphagia with liquids and solids. Esophageal Stricture: Barium swallow showed apparent distal esophageal stricture ; esophagus remains diffusely dilated with residual food. GI consulted, showed esophageal stricture, dilatation performed. He has tolerated liquids well. His abdominal pain has resolved and he denies any dysphagia. He has been cleared for discharge by gastroenterology. The patient will be attempting dinner, and will be discharged if he tolerates well. The patient is very happy with this plan and feels ready for discharge. Instructed to f/up with GI in 2 weeks. DVT Prophylaxis: teds/SCDs Discharge Planning: Discharge patient to home Condition on discharge: Improved Regular Diet as tolerated Ad Marcy activity Rx written: Follow-up with primary care physician and gastroenterology Discussed Condition With Patient, Tarsha Talbert RN, Kristine F PA-C May 29, 2017 17:46 Aminta Rodriguez DO May 29, 2017 23:33
--- NOTE | 2017-05-29 17:59 | HHI.DCPOC ---
Discharge Care Plan Diagnosis: (1) Esophageal stricture (2) S/P dilatation of esophageal stricture Goals to Promote Your Health * To prevent worsening of your condition and complications * To maintain your health at the optimal level Directions to Meet Your Goals Take your medications as prescribed Follow your dietary instruction Follow activity as directed Keep your appointments as scheduled Take your immunizations and boosters as scheduled If your symptoms worsen call your PCP, if no PCP go to Urgent Care Center or Emergency Room Smoking is Dangerous to Your Health. Avoid second hand smoke Call the 24-hour hour crisis hotline for domestic abuse at Lizzie Jones PA-C May 29, 2017 5:59 pm
[2017-05-29 18:14] VITALS: BP 117/66; PULSE 57; RESP 18; TEMP 98.5; O2SAT 95
[2017-05-29] MEDS: ONDANSETRON HCL 4 MG/2 ML VIAL IVP PRN (20:50)
[2017-05-29] MEDS: SODIUM CHLORIDE 0.9% FLUSH 10 ML FLUSH IV FLUSH SCH (20:51)
[2017-05-29] MEDS: DOCUSATE SODIUM 50 MG/SENNA 8.6 MG TAB PO SCH (20:53)
[2017-05-29] MEDS: SODIUM CHLOR 0.9% 1000 ML INJ 1,000 ML IV SCH (20:58)
[2017-05-29 23:23] VITALS: BP 123/68; PULSE 67; RESP 18; TEMP 98.1; O2SAT 93
[2017-05-30 04:59] VITALS: BP 120/66; PULSE 55; RESP 18; TEMP 98.5; O2SAT 95
[2017-05-30 07:07] LABS: AUTOMATED NEUTROPHIL # 8.1 TH/MM3 (1.8-7.7); BASOPHIL # 0.1 TH/MM3 (0-0.2); BASOPHIL % 0.4 % (0.0-2.0); EOSINOPHIL # 0.4 TH/MM3 (0-0.4); HEMATOCRIT 39.9 % (39.0-51.0); HEMO FLAGS DIFF FINAL; LYMPH % 17.3 % (9.0-44.0); LYMPHOCYTE # 2.1 TH/MM3 (1.0-4.8); MEAN CELL VOLUME 94.3 FL (80.0-100.0); MEAN CORPUSCULAR HEMOGLOBIN 31.4 PG (27.0-34.0); MEAN CORPUSCULAR HGB CONC 33.3 % (32.0-36.0); MONO % 12.1 % (0.0-8.0); NEUT % 67.2 % (16.0-70.0); PLATELET COUNT 252 TH/MM3 (150-450); RED BLOOD COUNT 4.23 MIL/MM3 (4.50-5.90)
[2017-05-30 07:15] LABS: BICARBONATE 27.5 MEQ/L (21.0-32.0); POTASSIUM 3.5 MEQ/L (3.5-5.1)
[2017-05-30 08:00] VITALS: BP 145/80; PULSE 70; RESP 20; TEMP 98; O2SAT 91
--- NOTE | 2017-05-30 08:12 | HHI.PR ---
Subjective Remarks Follow up for esophageal stricture s/p dilatation. The patient reports he attempted dinner last night, however started to feel upper abdominal fullness and then vomited shortly after. He has been able to tolerate liquids overnight. Denies any abdominal pain. Denies fevers/chills. He is concerned that the dilatation failed since this has happened before. Objective Vitals Vital Signs Date Time Temp Pulse Resp B/P Pulse Ox O2 Delivery O2 Flow Rate FiO2 05/30/17 04:59 98.5 55 18 120/66 95 05/29/17 23:23 98.1 67 18 123/68 93 05/29/17 18:14 98.5 57 18 117/66 95 05/29/17 17:18 98.7 69 18 130/72 97 05/29/17 16:11 97.8 70 16 128/63 95 05/29/17 16:00 69 17 115/68 95 05/29/17 15:45 71 17 105/60 97 05/29/17 15:37 97.6 85 15 98/60 98 05/29/17 14:15 76 18 124/81 96 Room Air 05/29/17 12:15 61 18 145/81 96 Room Air 05/29/17 09:53 18 05/29/17 09:33 98.7 69 16 150/84 96 Room Air I/O 05/29/17 05/29/17 05/29/17 05/30/17 05/30/17 05/30/17 07:00 15:00 23:00 07:00 15:00 23:00 Intake Total 1000 ml 350 ml Output Total 250 ml 0 ml Balance 750 ml 350 ml Intake IV Total 1000 ml TPN/PPN 50 ml Other 300 ml Output Urine Total 250 ml 0 ml Estimated Blood Loss 0 ml Result Diagram: 05/30/17 0612 05/30/17 0612 Imaging Last Impressions Chest X-Ray 05/29/17 0955 Signed Impressions: Service Date/Time: Monday, May 29, 2017 10:06 - CONCLUSION: 1. COPD changes. 2. No free air or pleural effusion identified. Mook Palacios MD Barium Swallow X-Ray 05/29/17 0000 Signed Impressions: Service Date/Time: Monday, May 29, 2017 11:43 - CONCLUSION: 1. Apparent distal esophageal stricture again noted. 2. The esophagus remains diffusely mildly dilated. There is residual food. Yonatan Rosenberg MD Objective Remarks GENERAL: Well-nourished, well-developed pleasant middle aged male patient in [facility]. SKIN: Warm and dry. No rash. HEENT: Normocephalic. Atraumatic.Pupils equal and round. Mucous membranes pink and moist. CARDIOVASCULAR: Regular rate and rhythm. S1, S2 noted. No murmur appreciated. RESPIRATORY: No accessory muscle use. Clear to auscultation. Breath sounds equal bilaterally. GASTROINTESTINAL: Abdomen soft, non-tender, nondistended. Normoactive bowel sounds x4. MUSCULOSKELETAL: No obvious deformities. Extremities without clubbing, cyanosis , or edema. NEUROLOGICAL: Awake and alert. No obvious cranial nerve deficits. Motor grossly within normal limits. Normal speech. PSYCHIATRIC: Appropriate mood and affect; insight and judgment normal. Medications and IVs Current Medications Medications (Trade) Dose Ordered Sig/Mariely Route Start Time Stop Time Status Last Admin (NS 1000 ml Inj) 1,000 ml @ 100 mls/hr Q10H IV 05/29/17 14:00 05/29/17 20:58 (NS Flush) 2 ml UNSCH PRN IV FLUSH 05/29/17 13:00 (NS Flush) 2 ml BID IV FLUSH 05/29/17 21:00 05/29/17 20:51 (Zofran Inj) 4 mg Q6H PRN IVP 05/29/17 13:00 05/29/17 20:50 (Tylenol) 650 mg Q6H PRN PO 05/29/17 13:00 ([place] 5-325 Mg) 1 tab Q4H PRN PO 05/29/17 13:00 (Morphine Inj) 2 mg Q3H PRN IV 05/29/17 13:00 (Narcan Inj) 0.4 mg UNSCH PRN IV 05/29/17 13:00 (Destini-Colace) 1 tab BID PO 05/29/17 21:00 05/29/17 20:53 (Milk Of Magnesia Liq) 30 ml Q12H PRN PO 05/29/17 13:00 (Senokot) 17.2 mg Q12H PRN PO 05/29/17 13:00 (Dulcolax Supp) 10 mg DAILY PRN RECTAL 05/29/17 13:00 (Lactulose Liq) 30 ml DAILY PRN PO 05/29/17 13:00 Miscellaneous Information ALL NURSING DEPARTME... UNSCH PRN .XX 05/29/17 15:37 05/30/17 15:36 A/P Problem List: (1) Esophageal stricture ICD Code: K22.2 Status: Acute (2) S/P dilatation of esophageal stricture ICD Code: Z98.890 Status: Acute Assessment and Plan 56-year-old male with history of achalasia, Lizzy fundoplication, esophagomyotomy, esophageal stricture s/p dilatation 2014, presents with a 5 day history of dysphagia with liquids and solids. Esophageal Stricture: Barium swallow showed apparent distal esophageal stricture ; esophagus remains diffusely dilated with residual food. -GI consulted, showed esophageal stricture, dilatation performed, cleared for discharge. -Attempted discharge post dilatation however patient did not tolerate oral intake and vomited shortly after -discussed with GI who will re-evaluate today -continue diet as tolerated -continue supportive treatment with IVF, antiemetics prn, and pain control prn -instructed to follow up with GI in 2 weeks after discharge DVT Prophylaxis: teds/SCDs Discharge Planning Discharge pending further clinical improvement and tolerating oral intake. Lizzie Jones PA-C May 30, 2017 8:12 am
--- NOTE | 2017-05-30 08:57 | HHI.GIFU ---
Subjective Remarks Resting in bed in no distress. He reports that he did not tolerate dinner last night. He could not eat the chicken because there was too much pepper on it, but states both the rice and biscuit became lodged in esophagus, would not pass , and that he vomited this back up. He has not tried breakfast yet. He is tolerating liquids and denies abdominal pain. (Ceci Tamayo) Objective Vitals I&O Vital Signs Date Time Temp Pulse Resp B/P Pulse Ox O2 Delivery O2 Flow Rate FiO2 05/30/17 04:59 98.5 55 18 120/66 95 05/29/17 23:23 98.1 67 18 123/68 93 05/29/17 18:14 98.5 57 18 117/66 95 05/29/17 17:18 98.7 69 18 130/72 97 05/29/17 16:11 97.8 70 16 128/63 95 05/29/17 16:00 69 17 115/68 95 05/29/17 15:45 71 17 105/60 97 05/29/17 15:37 97.6 85 15 98/60 98 05/29/17 14:15 76 18 124/81 96 Room Air 05/29/17 12:15 61 18 145/81 96 Room Air 05/29/17 09:53 18 05/29/17 09:33 98.7 69 16 150/84 96 Room Air I/O 05/29/17 05/29/17 05/29/17 05/30/17 05/30/17 05/30/17 07:00 15:00 23:00 07:00 15:00 23:00 Intake Total 1000 ml 350 ml Output Total 250 ml 0 ml Balance 750 ml 350 ml Intake IV Total 1000 ml TPN/PPN 50 ml Other 300 ml Output Urine Total 250 ml 0 ml Estimated Blood Loss 0 ml Laboratory Laboratory Tests Test 05/29/17 05/29/17 05/30/17 10:10 11:10 06:12 White Blood Count 12.3 12.0 Red Blood Count 4.74 4.23 Hemoglobin 14.8 13.3 Hematocrit 44.4 39.9 Mean Corpuscular Volume 93.7 94.3 Mean Corpuscular Hemoglobin 31.4 31.4 Mean Corpuscular Hemoglobin 33.5 33.3 Concent Red Cell Distribution Width 13.2 13.0 Platelet Count 295 252 Mean Platelet Volume 7.4 7.4 Neutrophils (%) (Auto) 75.1 67.2 Lymphocytes (%) (Auto) 12.2 17.3 Monocytes (%) (Auto) 10.3 12.1 Eosinophils (%) (Auto) 2.0 3.0 Basophils (%) (Auto) 0.4 0.4 Neutrophils # (Auto) 9.2 8.1 Lymphocytes # (Auto) 1.5 2.1 Monocytes # (Auto) 1.3 1.5 Eosinophils # (Auto) 0.2 0.4 Basophils # (Auto) 0.0 0.1 CBC Comment DIFF FINAL DIFF FINAL Differential Comment Prothrombin Time 10.4 Prothromb Time International 0.9 Ratio Activated Partial 23.1 Thromboplast Time Sodium Level 141 140 Potassium Level 4.0 3.5 Chloride Level 108 107 Carbon Dioxide Level 27.9 27.5 Anion Gap 5 6 Blood Urea Nitrogen 9 6 Creatinine 0.91 0.82 Estimat Glomerular Filtration 87 98 Rate Random Glucose 99 87 Calcium Level 8.2 7.9 Total Bilirubin 0.5 Aspartate Amino Transf 19 (AST/SGOT) Alanine Aminotransferase 20 (ALT/SGPT) Alkaline Phosphatase 74 Total Protein 6.9 Albumin 3.5 Lipase 94 Urine Color YELLOW Urine Turbidity CLEAR Urine pH 6.0 Urine Specific [place] 1.009 Urine Protein NEG Urine Glucose (UA) NEG Urine Ketones NEG Urine Occult Blood NEG Urine Nitrite NEG Urine Bilirubin NEG Urine Urobilinogen LESS THAN 2.0 Urine Leukocyte Esterase NEG Urine RBC 2 Urine WBC 1 Urine Mucus FEW Microscopic Urinalysis Comment CULT NOT INDICATED Imaging Last Impressions Chest X-Ray 05/29/17 0955 Signed Impressions: Service Date/Time: Monday, May 29, 2017 10:06 - CONCLUSION: 1. COPD changes. 2. No free air or pleural effusion identified. Mook Palacios MD Barium Swallow X-Ray 05/29/17 0000 Signed Impressions: Service Date/Time: Monday, May 29, 2017 11:43 - CONCLUSION: 1. Apparent distal esophageal stricture again noted. 2. The esophagus remains diffusely mildly dilated. There is residual food. Yonatan Rosenberg MD Physical Exam HEENT: Normocephalic; atraumatic; no jaundice. CHEST: CTA CARDIAC: RRR ABDOMEN: Soft, nondistended, nontender; no hepatosplenomegaly; bowel sounds are present in all four quadrants. EXTREMITIES: No clubbing, cyanosis, or edema. SKIN: Normal; no rash; no jaundice. METAL TRIMMER: No focal deficits; alert and oriented times three. (Ceci Tamayo) Assessment and Plan Plan ASSESSMENT - Esophageal stricture, dysphagia. Barium Swallow X-Ray (05/29/17)----> 1. Apparent distal esophageal stricture again noted. 2. The esophagus remains diffusely mildly dilated. There is residual food. S/P EGD with esophageal dilation with an achalasia balloon dilator (05/29/17)----> Esophagus this appeared to be unremarkable there was a tightness at the end of the esophagus but it was traversable with minimal resistance the barium swallow had shown almost a bird beak configuration, s/p dilatation using the achalasia balloon size 30 mm post dilatation, normal stomach, duodenum. Pt did not tolerate dinner last night- rice and a biscuit became lodged and he vomited this back up. He is passing liquids and no longer having abdominal pain. Rpt. Barium swallow. - Hx Achalasia. S/P Heller myotomy and revision for dysphagia [place] [address] Barillas PLAN: - ROBEL - Rpt. Barium swallow today - Supportive care - Will consider manometry vs. evaluation by Dr. Barillas depending on results of barium swallow - Pt seen and examined by Dr. Nicole and myself and this note is written on his behalf (Ceci Tamayo) Physician Comments Patient seen and examined Agree with above Continue with current supportive care Monitor labs Case discussed with Dr. Gonzalez patient has persistent narrowing at the LES where his prior myotomy and Nitish fundoplication had taken place Most appropriate action at this point would be to take down the fundoplication we will consult with Dr. Gonzalez (Paulie Nicole MD) Ceci Tamayo May 30, 2017 08:57 Paulie Nicole MD May 30, 2017 16:37
[2017-05-30] MEDS: DOCUSATE SODIUM 50 MG/SENNA 8.6 MG TAB PO SCH ×2 (09:53→21:00)
[2017-05-30] MEDS: SODIUM CHLORIDE 0.9% FLUSH 10 ML FLUSH IV FLUSH SCH ×2 (09:54→21:00)
[2017-05-30] MEDS: SODIUM CHLOR 0.9% 1000 ML INJ 1,000 ML IV SCH ×4 (09:55→21:43)
[2017-05-30 12:00] VITALS: BP 143/80; PULSE 58; RESP 20; TEMP 98.3; O2SAT 95
--- NOTE | 2017-05-30 12:00 | RADRPT ---
EXAM DATE/TIME: 05/30/2017 10:17 [place] COMPARISON: BARIUM SWALLOW, May 29, 2017, 11:43. INDICATIONS : Dysphagia, inablitlity to swallow one day post esophageal dilation FLUORO TIME: 1.9 minutes IMAGE COUNT: 43 CONTRAST: 1. Liquid E-Z Paque Barium Sulfate (60% w/v, 41% w.w) MEDICAL HISTORY : esophageal stricture, achalasia SURGICAL HISTORY : distal esophagus/stomach surgery x 2 ENCOUNTER: Subsequent ACUITY: 4 - 6 days PAIN SCORE: 0/10 LOCATION: Bilateral esophagus FINDINGS: There is no evidence of aspiration. The swallowing function was unremarkable in appearance. Multiphas ic examination of the esophagus demonstrated stable diffuse dilatation without significant change. Ap parent distal esophageal stricture is again noted with residual fluid noted in the mid and distal eso phagus. Distal esophagus opening measured up to approximately 1 cm. There was no evidence of a hiatal hernia or reflux. CONCLUSION: No significant change. Apparent distal esophageal stricture measuring up to approxima tely 1 cm. The esophagus remains dilated with residual food. Yonatan Rosenberg MD on May 30, 2017 at 11:55 Board Certified Radiologist. This report was verified electronically.
[2017-05-30 15:29] VITALS: BP 139/73; PULSE 55; RESP 16; TEMP 98.4; O2SAT 95
--- NOTE | 2017-05-30 16:48 | EKG ---
Date Performed: 05/29/2017 Time Performed: 10:19:36 PTAGE: 56 years EKG: SINUS BRADYCARDIA BORDERLINE ECG PREVIOUS TRACING : 06/19/2015 12.36 Compared to prior tracing no significant change DOCTOR: Jourdan Murguia Interpretating Date/Time 05/30/2017 16:47:08
[2017-05-30 21:35] VITALS: BP 142/78; PULSE 58; RESP 20; TEMP 98.2; O2SAT 96
[2017-05-31] VITALS: BP 149/66; PULSE 56; RESP 19; TEMP 98.9; O2SAT 93
[2017-05-31] MEDS: SODIUM CHLOR 0.9% 1000 ML INJ 1,000 ML IV SCH (05:33)
[2017-05-31 06:01] VITALS: BP 131/78; PULSE 64; RESP 18; TEMP 98.1; O2SAT 94
--- NOTE | 2017-05-31 08:01 | HHI.PR ---
Subjective Remarks Follow up for dysphagia, esophageal stricture, achalasia. The patient reports continued intolerance to solids. He was only able to tolerate liquids yesterday. He is requesting Ensure shakes. He has some epigastric pain, especially after attempting to eat. He reports intermittent nausea, temporarily relieved by IV Zofran. Denies fevers/chills. Denies any other medical complaints at this time. Objective Vitals Vital Signs Date Time Temp Pulse Resp B/P Pulse Ox O2 Delivery O2 Flow Rate FiO2 05/31/17 06:01 98.1 64 18 131/78 94 05/31/17 00:00 98.9 56 19 149/66 93 05/30/17 21:35 98.2 58 20 142/78 96 05/30/17 15:29 98.4 55 16 139/73 95 05/30/17 12:00 98.3 58 20 143/80 95 I/O 05/30/17 05/30/17 05/30/17 05/31/17 05/31/17 05/31/17 07:00 15:00 23:00 07:00 15:00 23:00 Intake Total 1078 ml Balance 1078 ml Oral Supplement 240 ml IV Total 838 ml # Voids 2 Result Diagram: 05/30/17 0612 05/30/17 0612 Imaging Last Impressions Barium Swallow X-Ray 05/30/17 0000 Signed Impressions: Service Date/Time: May 10:17 - CONCLUSION: No significant change. Apparent distal esophageal stricture measuring up to approximately 1 cm. The esophagus remains dilated with residual food. Yonatan Rosenberg MD Chest X-Ray 05/29/17 0955 Signed Impressions: Service Date/Time: Monday, May 29, 2017 10:06 - CONCLUSION: 1. COPD changes. 2. No free air or pleural effusion identified. Mook Palacios MD Objective Remarks GENERAL: Well-nourished, well-developed pleasant middle aged male patient in [facility]. SKIN: Warm and dry. No rash. HEENT: Normocephalic. Atraumatic.Pupils equal and round. Mucous membranes pink and moist. CARDIOVASCULAR: Regular rate and rhythm. S1, S2 noted. No murmur appreciated. RESPIRATORY: No accessory muscle use. Clear to auscultation. Breath sounds equal bilaterally. GASTROINTESTINAL: Abdomen soft, non-tender, nondistended. Normoactive bowel sounds x4. MUSCULOSKELETAL: No obvious deformities. Extremities without clubbing, cyanosis , or edema. NEUROLOGICAL: Awake and alert. No obvious cranial nerve deficits. Motor grossly within normal limits. Normal speech. PSYCHIATRIC: Appropriate mood and affect; insight and judgment normal. Medications and IVs Current Medications Medications (Trade) Dose Ordered Sig/Mariely Route Start Time Stop Time Status Last Admin (NS 1000 ml Inj) 1,000 ml @ 100 mls/hr Q10H IV 05/29/17 14:00 05/31/17 05:33 (NS Flush) 2 ml UNSCH PRN IV FLUSH 05/29/17 13:00 (NS Flush) 2 ml BID IV FLUSH 05/29/17 21:00 05/30/17 09:54 (Zofran Inj) 4 mg Q6H PRN IVP 05/29/17 13:00 05/31/17 08:05 (Tylenol) 650 mg Q6H PRN PO 05/29/17 13:00 ([place] 5-325 Mg) 1 tab Q4H PRN PO 05/29/17 13:00 (Morphine Inj) 2 mg Q3H PRN IV 05/29/17 13:00 (Narcan Inj) 0.4 mg UNSCH PRN IV 05/29/17 13:00 (Destini-Colace) 1 tab BID PO 05/29/17 21:00 05/31/17 08:05 (Milk Of Magnesia Liq) 30 ml Q12H PRN PO 05/29/17 13:00 (Senokot) 17.2 mg Q12H PRN PO 05/29/17 13:00 (Dulcolax Supp) 10 mg DAILY PRN RECTAL 05/29/17 13:00 (Lactulose Liq) 30 ml DAILY PRN PO 05/29/17 13:00 A/P Problem List: (1) Esophageal stricture ICD Code: K22.2 Status: Acute (2) S/P dilatation of esophageal stricture ICD Code: Z98.890 Status: Acute Assessment and Plan 56-year-old male with history of achalasia, Lizzy fundoplication, esophagomyotomy, esophageal stricture s/p dilatation 2014, presents with a 5 day history of dysphagia with liquids and solids. Esophageal Stricture, Dysphagia: Barium swallow 8/16 showed apparent distal esophageal stricture; esophagus remains diffusely dilated with residual food. -GI consulted, showed esophageal stricture, dilatation performed, cleared for discharge. -Attempted discharge post dilatation however patient did not tolerate oral intake and vomited shortly after -Repeat Barium Swallow 05/30 showed no significant change; apparent distal esophageal stricture measuring up to approximately 1cm; esophagus dilated with residual food -GI has requested General Surgery Dr. Barillas evaluation -change diet to full liquids, supplement with Ensure shakes -continue supportive treatment with IVF, antiemetics prn, and pain control prn DVT Prophylaxis: teds/SCDs, avoid chemoprophylaxis with possible upcoming procedure Discharge Planning Discharge pending further clinical improvement and tolerating oral intake. Lizzie Jones PA-C May 31, 2017 8:01 am
[2017-05-31] MEDS: SODIUM CHLORIDE 0.9% FLUSH 10 ML FLUSH IV FLUSH SCH ×2 (08:05→21:00)
[2017-05-31] MEDS: ONDANSETRON HCL 4 MG/2 ML VIAL IVP PRN (08:05)
[2017-05-31] MEDS: DOCUSATE SODIUM 50 MG/SENNA 8.6 MG TAB PO SCH ×2 (08:05→21:00)
--- NOTE | 2017-05-31 10:27 | PD.CAR.PN ---
CVT Progress Note Subjective/Hospital Course: consult received Full dictation TF Thanks J Objective: Vital Signs Date Time Temp Pulse Resp B/P Pulse Ox O2 Delivery O2 Flow Rate FiO2 05/31/17 06:01 98.1 64 18 131/78 94 05/31/17 00:00 98.9 56 19 149/66 93 05/30/17 21:35 98.2 58 20 142/78 96 05/30/17 15:29 98.4 55 16 139/73 95 05/30/17 12:00 98.3 58 20 143/80 95 Result Diagram: 05/30/17 0612 05/30/17 0612 Gaston Barillas MD May 31, 2017 10:27
[2017-05-31 11:56] VITALS: BP 125/80; PULSE 78; RESP 20; TEMP 96.8; O2SAT 96
--- NOTE | 2017-05-31 12:15 | PD.CAR.PN ---
CVT Progress Note Subjective/Hospital Course: consult received Full dictation MISSY Gonzalez 05/31/17 Full consult has been dictated Patient has a short narrowing of this of distal esophagus cross-sectional area probably over just about 1 cm After dilatation patient could not swallow much other than liquids but now he had a soft diet and he had no difficulty swallowing it Based on this I would probably hold off on any surgery for at this point the only available surgeries on table dilatation of esophagus with bougies splitting of the distal esophagus and placing a modified Thal patch This surgery can be associated with leakage and few other problems so is not then innoxious procedure and should be selected carefully If patient is able to eat soft diet I would not recommend surgery on the other hand if patient is unable to tolerate soft diet and the surgery remains the only option Let see how patient does next day or so and will go from there Objective: Vital Signs Date Time Temp Pulse Resp B/P Pulse Ox O2 Delivery O2 Flow Rate FiO2 05/31/17 11:56 96.8 78 20 125/80 96 05/31/17 06:01 98.1 64 18 131/78 94 05/31/17 00:00 98.9 56 19 149/66 93 05/30/17 21:35 98.2 58 20 142/78 96 05/30/17 15:29 98.4 55 16 139/73 95 Result Diagram: 05/30/1761105/30/17611 Gaston Barillas MD May 31, 2017 12:15
--- NOTE | 2017-05-31 12:31 | MB ---
cc: GASTON BARILLAS MD DATE OF CONSULTATION: 05/31/[address] Gaston Barillas, surgery REASON FOR CONSULTATION Recurrent esophageal stricture, dysphagia. HISTORY OF PRESENT DISEASE: This 56-year-old male who appears older then his actual age presents now with difficulty swallowing. The patient developed dysphasia basically overnight, one day he was fine, the next day he could not swallow and started throwing up. The patient was then admitted and worked up, the patient has had Heller's esophagomyotomy and a Lizzy wrap about two years ago. This was followed by release of the Lizzy wrap because of the difficulty swallowing. The patient has had esophageal dilation for many years and stitch rubber finally to the above noted surgeries. He was then dilated and then injected with Botox and did well for two years. This is now a sudden difficulty. The patient underwent this admission esophagogastroduodenoscopy with dilatation and I have discussed this with Dr. Nicole in addition, a barium swallow is available and it reveals a tapered area of the distal esophagus with a narrowing of about 1 cm in diameter and 1 cm in length. Question arises now which way to go with this. PAST SURGICAL HISTORY: Past surgical history as above noted. PAST MEDICAL HISTORY: Past medical history noncontributory. The patient drinks about half six-pack a day and smokes one pack a day. He also uses pot. PHYSICAL EXAMINATION: IN GENERAL: Physical examination reveals 56-year-old male in no acute distress. The patient is well-nourished, so clearly he has not lost any weight, as a matter of fact since I saw him last time he gained weight and he looks very muscular, normocephalic. HEAD, EYES, EARS, NOSE, AND THROAT: No trauma to the head. Pupils equally reactive. Extraocular muscles intact. NECK: Supple. Lateral carotid pulses. No bruits. CHEST: Clear bilateral breath sounds, decreased over both lung patterson consistent with moderate chronic obstructive pulmonary disease. HEART: Regular rhythm. ABDOMEN: The abdomen is soft, Active bowel sounds. Scar from previous surgery noted. The patient has no rebound, no guarding. No masses. No tenderness. EXTREMITIES: The extremities are grossly with normal limits. BACK: The back is normal. IMPRESSION I reviewed laboratory and diagnostic procedure. The patient had a sudden dysphasia so at this point this does not quite match with gradual development of the dysphagia with the recurrent stricture. There may have been something stuck in the narrowed area which is definitely there and now is dislodged. After the dilatation the other day. The patient was only able to drink liquids, now he has had soft diet which he tolerated, so I am not really in a malagon to operate on this gentleman because the results of surgery may be variable at this point the patient would need actual dilatation of esophagus on the table under direct vision and then splitting the esophagus with modified Thal patch in order to do esophagoplasty, this is not an innocent procedure and can be associated with leak and pretty bad complications, therefore unless the patient truly needs it, we should not do it. Considering the patient is eating soft diet without difficulty I would probably sit at it. If this gets worse can have repeated dilatations with or without stent placement and if nothing else works we may decide to operate on the patient. I ablated all this in detail to the patient and he would definitely like to consider conservative therapy. Gaston Durán /12:06 PM /12:13 PM MARBELLA
--- NOTE | 2017-05-31 15:39 | HHI.GIFU ---
Subjective Remarks Pt resting in bed. Pt is on liquid diet- states he did eat some grits this morning, but is having more difficulty this afternoon. States he took some broth, but it took 45 minutes to get his ensure down. He has mild epigastric discomfort. (Ceci Tamayo) Objective Vitals I&O Vital Signs Date Time Temp Pulse Resp B/P Pulse Ox O2 Delivery O2 Flow Rate FiO2 05/31/17 11:56 96.8 78 20 125/80 96 05/31/17 06:01 98.1 64 18 131/78 94 05/31/17 00:00 98.9 56 19 149/66 93 05/30/17 21:35 98.2 58 20 142/78 96 I/O 05/30/17 05/30/17 05/30/17 05/31/17 05/31/17 05/31/17 07:00 15:00 23:00 07:00 15:00 23:00 Intake Total 1078 ml 800 ml Balance 1078 ml 800 ml Oral Supplement 240 ml IV Total 838 ml 800 ml # Voids 2 Physical Exam HEENT: Normocephalic; atraumatic; no jaundice. CHEST: CTA CARDIAC: RRR ABDOMEN: Soft, nondistended, nontender; no hepatosplenomegaly; bowel sounds are present in all four quadrants. EXTREMITIES: No clubbing, cyanosis, or edema. SKIN: Normal; no rash; no jaundice. VASCULAR ULTRASOUND TECHNOLOGIST: No focal deficits; alert and oriented times three. (Ceci Tamayo) Assessment and Plan Plan ASSESSMENT - Esophageal stricture, dysphagia. Barium Swallow X-Ray (05/29/17)----> 1. Apparent distal esophageal stricture again noted. 2. The esophagus remains diffusely mildly dilated. There is residual food. S/P EGD with esophageal dilation with an achalasia balloon dilator (05/29/17)----> Esophagus this appeared to be unremarkable there was a tightness at the end of the esophagus but it was traversable with minimal resistance the barium swallow had shown almost a bird beak configuration, s/p dilatation using the achalasia balloon size 30 mm post dilatation, normal stomach, duodenum. Pt did not tolerate dinner last night- rice and a biscuit became lodged and he vomited this back up. Rpt. Barium Swallow (05/30/17)----> No significant change. Apparent distal esophageal stricture measuring up to approximately 1 cm. The esophagus remains dilated with residual food. Dr. Barillas following, - Hx Achalasia. S/P unsuccessful botox. S/P Heller myotomy and revision for dysphagia in [address] Barillas PLAN: - ROBEL- taking full liquids - CVT following - Supportive care - Pt seen and examined by Dr. Nicole and myself and this note is written on his behalf (Ceci Tamayo) Physician Comments Patient seen and examined Agree with above Continue with current supportive care Monitor labs Case discussed with Dr. Gonzalez surgical intervention would be quite complex and the patient appears to be tolerating oral intake at this point and his weight appears to be stable Can consider multiple sessions of dilations as needed in the future we can also consider this an esophageal stent placement if necessary but if the patient is able to tolerate intake then he would be cleared for discharge from a GI standpoint to follow-up as an outpatient (Paulie Nicole MD) Ceci Tamayo May 31, 2017 15:39 Paulie Nicole MD May 31, 2017 16:27
[2017-05-31 20:40] VITALS: BP 123/69; PULSE 66; RESP 18; TEMP 98.7; O2SAT 96
[2017-06-01] VITALS (7 sets, daily range): BP systolic 115–156; BP diastolic 71–87; PULSE 52–68; RESP 16–20; TEMP 96.4–98.6; O2SAT 93–97
[2017-06-01] MEDS: SODIUM CHLORIDE 0.9% FLUSH 10 ML FLUSH IV FLUSH SCH ×2 (08:05→21:01)
[2017-06-01] MEDS: ONDANSETRON HCL 4 MG/2 ML VIAL IVP PRN (08:05)
[2017-06-01] MEDS: DOCUSATE SODIUM 50 MG/SENNA 8.6 MG TAB PO SCH ×2 (08:05→21:01)
[2017-06-01] MEDS: MORPHINE SULFATE 4 MG/ML INJ IV PRN ×2 (08:05→19:43)
--- NOTE | 2017-06-01 09:19 | HHI.PR ---
Subjective Remarks Follow up for dysphagia, esophageal stricture, achalasia. The patient reports continued dysphagia. He states it takes him a very long time to even get down his Ensure shakes, and will have epigastric abdominal discomfort after meals. Last night he reports an episode of vomiting. He has waves of intermittent nausea. Denies fevers/chills. He has no other medical complaints at this time. Objective Vitals Vital Signs Date Time Temp Pulse Resp B/P Pulse Ox O2 Delivery O2 Flow Rate FiO2 06/01/17 08:15 98.2 56 16 117/71 93 06/01/17 05:14 98.5 68 18 131/79 96 06/01/17 00:30 98.6 67 18 140/78 96 05/31/17 20:40 98.7 66 18 123/69 96 05/31/17 11:56 96.8 78 20 125/80 96 I/O 05/31/17 05/31/17 05/31/17 06/01/17 06/01/17 06/01/17 07:00 15:00 23:00 07:00 15:00 23:00 Intake Total 800 ml Balance 800 ml IV Total 800 ml Result Diagram: 05/30/17 0612 05/30/17 0612 Imaging Last Impressions Barium Swallow X-Ray 05/30/17 0000 Signed Impressions: Service Date/Time: May 10:17 - CONCLUSION: No significant change. Apparent distal esophageal stricture measuring up to approximately 1 cm. The esophagus remains dilated with residual food. Yonatan Rosenberg MD Chest X-Ray 05/29/17 0955 Signed Impressions: Service Date/Time: Monday, May 29, 2017 10:06 - CONCLUSION: 1. COPD changes. 2. No free air or pleural effusion identified. Mook Palacios MD Objective Remarks GENERAL: Well-nourished, well-developed pleasant middle aged male patient in [facility]. SKIN: Warm and dry. No rash. HEENT: Normocephalic. Atraumatic.Pupils equal and round. Mucous membranes pink and moist. CARDIOVASCULAR: Regular rate and rhythm. S1, S2 noted. No murmur appreciated. RESPIRATORY: No accessory muscle use. Clear to auscultation. Breath sounds equal bilaterally. GASTROINTESTINAL: Abdomen soft, non-tender, nondistended. Normoactive bowel sounds x4. MUSCULOSKELETAL: No obvious deformities. Extremities without clubbing, cyanosis , or edema. NEUROLOGICAL: Awake and alert. No obvious cranial nerve deficits. Motor grossly within normal limits. Normal speech. PSYCHIATRIC: Appropriate mood and affect; insight and judgment normal. Procedures 05/29/17 - EGD with dilatation Medications and IVs Current Medications Medications (Trade) Dose Ordered Sig/Mariely Route Start Time Stop Time Status Last Admin (NS 1000 ml Inj) 1,000 ml @ 100 mls/hr Q10H IV 05/29/17 14:00 05/30/17 21:00 (NS Flush) 2 ml UNSCH PRN IV FLUSH 05/29/17 13:00 (NS Flush) 2 ml BID IV FLUSH 05/29/17 21:00 06/01/17 08:05 (Zofran Inj) 4 mg Q6H PRN IVP 05/29/17 13:00 06/01/17 08:05 (Tylenol) 650 mg Q6H PRN PO 05/29/17 13:00 ([place] 5-325 Mg) 1 tab Q4H PRN PO 05/29/17 13:00 (Morphine Inj) 2 mg Q3H PRN IV 05/29/17 13:00 06/01/17 08:05 (Narcan Inj) 0.4 mg UNSCH PRN IV 05/29/17 13:00 (Destini-Colace) 1 tab BID PO 05/29/17 21:00 05/31/17 08:05 (Milk Of Magnesia Liq) 30 ml Q12H PRN PO 05/29/17 13:00 (Senokot) 17.2 mg Q12H PRN PO 05/29/17 13:00 (Dulcolax Supp) 10 mg DAILY PRN RECTAL 05/29/17 13:00 (Lactulose Liq) 30 ml DAILY PRN PO 05/29/17 13:00 A/P Problem List: (1) Esophageal stricture ICD Code: K22.2 Status: Acute (2) S/P dilatation of esophageal stricture ICD Code: Z98.890 Status: Acute Assessment and Plan 56-year-old male with history of achalasia, Lizzy fundoplication, esophagomyotomy, esophageal stricture s/p dilatation 2014, presents with a 5 day history of dysphagia with liquids and solids. Esophageal Stricture, Dysphagia: Barium swallow 05/29 showed apparent distal esophageal stricture; esophagus remains diffusely dilated with residual food. -GI consulted, EGD 05/29 showed esophageal stricture, dilatation performed, cleared for discharge. -Attempted discharge post dilatation however patient did not tolerate oral intake and vomited shortly after -Repeat Barium Swallow 05/30 showed no significant change; apparent distal esophageal stricture measuring up to approximately 1cm; esophagus dilated with residual food -GI has requested General Surgery Dr. Barillas evaluation -change diet to full liquids, supplement with Ensure shakes -continue supportive treatment with IVF, antiemetics prn, and pain control prn -patient still not tolerating oral intake, await further GI/GS evaluation DVT Prophylaxis: teds/SCDs, avoid chemoprophylaxis with possible upcoming procedure Discharge Planning Discharge pending further clinical improvement and tolerating oral intake. Lizzie Jones PA-C Jun 01, 2017 9:19 am
--- NOTE | 2017-06-01 10:06 | HHI.GIFU ---
Subjective Remarks Pt reports that he is not doing any better today. He is only able to get the ensure down by mouth and reports that he has to take very small sips and that it takes 30 minutes to 45 minutes to get this down. He did have some epigastric pain last night, but states that he is not currently having any. ( Ceci Tamayo) Objective Vitals I&O Vital Signs Date Time Temp Pulse Resp B/P Pulse Ox O2 Delivery O2 Flow Rate FiO2 06/01/17 08:15 98.2 56 16 117/71 93 06/01/17 05:14 98.5 68 18 131/79 96 06/01/17 00:30 98.6 67 18 140/78 96 05/31/17 20:40 98.7 66 18 123/69 96 05/31/17 11:56 96.8 78 20 125/80 96 I/O 05/31/17 05/31/17 05/31/17 06/01/17 06/01/17 06/01/17 07:00 15:00 23:00 07:00 15:00 23:00 Intake Total 800 ml Balance 800 ml IV Total 800 ml Imaging Last Impressions Barium Swallow X-Ray 05/30/17 0000 Signed Impressions: Service Date/Time: May 10:17 - CONCLUSION: No significant change. Apparent distal esophageal stricture measuring up to approximately 1 cm. The esophagus remains dilated with residual food. Yonatan Rosenberg MD Chest X-Ray 05/29/17 0955 Signed Impressions: Service Date/Time: Monday, May 29, 2017 10:06 - CONCLUSION: 1. COPD changes. 2. No free air or pleural effusion identified. Mook Palacios MD Physical Exam HEENT: Normocephalic; atraumatic; no jaundice. CHEST: CTA CARDIAC: RRR ABDOMEN: Soft, nondistended, nontender; no hepatosplenomegaly; bowel sounds are present in all four quadrants. EXTREMITIES: No clubbing, cyanosis, or edema. SKIN: Normal; no rash; no jaundice. CALCINE FURNACE LOADER: No focal deficits; alert and oriented times three. (Ceci Tamayo) Assessment and Plan Plan ASSESSMENT - Esophageal stricture, dysphagia. Barium Swallow X-Ray (05/29/17)----> 1. Apparent distal esophageal stricture again noted. 2. The esophagus remains diffusely mildly dilated. There is residual food. S/P EGD with esophageal dilation with an achalasia balloon dilator (05/29/17)----> Esophagus this appeared to be unremarkable there was a tightness at the end of the esophagus but it was traversable with minimal resistance the barium swallow had shown almost a bird beak configuration, s/p dilatation using the achalasia balloon size 30 mm post dilatation, normal stomach, duodenum. Pt did not tolerate dinner last night- rice and a biscuit became lodged and he vomited this back up. Rpt. Barium Swallow (05/30/17)----> No significant change. Apparent distal esophageal stricture measuring up to approximately 1 cm. The esophagus remains dilated with residual food. Dr. Barillas following, Pt continues to have difficulty swallowing- only able to take ensure and reports this takes >30 minutes to get down. Intermittent epigastric pain associated with trying to eat. Will await Dr. Barillas's recommendations later today. - Hx Achalasia. S/P unsuccessful botox. S/P Heller myotomy and revision for dysphagia [place] [address] Barillas PLAN: - Full liquids - CVT following, await further recommendations - Supportive care - Pt seen and examined by Dr. Amezcua and myself and this note is written on his behalf (Ceci Tamayo) Physician Comments Seen and examined, will need to discuss with [facility] team, the risk of further dilatation is higher in a sitting of previous surgery and failed Botox injection. Further recommendations to follow. (Zane Amezcua MD) Ceci Tamayo Jun 01, 2017 10:06 Zane Amezcua MD Jun 01, 2017 11:51
[2017-06-01 10:11] LABS: AUTOMATED NEUTROPHIL # 6.7 TH/MM3 (1.8-7.7); BASOPHIL # 0.1 TH/MM3 (0-0.2); BASOPHIL % 1.1 % (0.0-2.0); EOSINOPHIL # 0.4 TH/MM3 (0-0.4); EOSINOPHIL % 4.1 % (0.0-4.0); HEMATOCRIT 41.3 % (39.0-51.0); HEMO FLAGS DIFF FINAL; LYMPH % 13.7 % (9.0-44.0); LYMPHOCYTE # 1.4 TH/MM3 (1.0-4.8); MEAN CELL VOLUME 92.3 FL (80.0-100.0); MEAN CORPUSCULAR HEMOGLOBIN 32.1 PG (27.0-34.0); MEAN CORPUSCULAR HGB CONC 34.8 % (32.0-36.0); MONO % 14.1 % (0.0-8.0); PLATELET COUNT 266 TH/MM3 (150-450); RED BLOOD COUNT 4.47 MIL/MM3 (4.50-5.90); RED CELL DISTRIBUTION WIDTH 12.7 % (11.6-17.2)
--- NOTE | 2017-06-01 10:30 | PD.CAR.PN ---
CVT Progress Note Subjective/Hospital Course: consult received Full dictation MISSY Gonzalez 05/31/17 Full consult has been dictated Patient has a short narrowing of this of distal esophagus cross-sectional area probably over just about 1 cm After dilatation patient could not swallow much other than liquids but now he had a soft diet and he had no difficulty swallowing it Based on this I would probably hold off on any surgery for at this point the only available surgeries on table dilatation of esophagus with bougies splitting of the distal esophagus and placing a modified Thal patch This surgery can be associated with leakage and few other problems so is not then innoxious procedure and should be selected carefully If patient is able to eat soft diet I would not recommend surgery on the other hand if patient is unable to tolerate soft diet and the surgery remains the only option Let see how patient does next day or so and will go from there 06/01/17 Patient again has some difficulty swallowing this morning as a postal last night when he could eat soft diet. I discussed this with Dr. Nicole and I believe firmly that surgery should be last resort especially in the face of redo and a tight stricture. Repeat dictation may be necessary and the perhaps a covered metal stent might be a possibility In addition laser ablation of the Schatzki ring may be an option prior to any surgery Objective: Vital Signs Date Time Temp Pulse Resp B/P Pulse Ox O2 Delivery O2 Flow Rate FiO2 06/01/17 10:07 06/01/17 08:15 98.2 56 16 117/71 93 06/01/17 05:14 98.5 68 18 131/79 96 06/01/17 00:30 98.6 67 18 140/78 96 05/31/17 20:40 98.7 66 18 123/69 96 05/31/17 11:56 96.8 78 20 125/80 96 Labs: Laboratory Tests Test 06/01/17 09:08 White Blood Count 10.0 TH/MM3 (4.0-11.0) Red Blood Count 4.47 MIL/MM3 (4.50-5.90) Hemoglobin 14.4 GM/DL (13.0-17.0) Hematocrit 41.3 % (39.0-51.0) Mean Corpuscular Volume 92.3 FL (80.0-100.0) Mean Corpuscular Hemoglobin 32.1 PG (27.0-34.0) Mean Corpuscular Hemoglobin 34.8 % Concent (32.0-36.0) Red Cell Distribution Width 12.7 % (11.6-17.2) Platelet Count 266 TH/MM3 (150-450) Mean Platelet Volume 7.5 FL (7.0-11.0) Neutrophils (%) (Auto) 67.0 % (16.0-70.0) Lymphocytes (%) (Auto) 13.7 % (9.0-44.0) Monocytes (%) (Auto) 14.1 % (0.0-8.0) Eosinophils (%) (Auto) 4.1 % (0.0-4.0) Basophils (%) (Auto) 1.1 % (0.0-2.0) Neutrophils # (Auto) 6.7 TH/MM3 (1.8-7.7) Lymphocytes # (Auto) 1.4 TH/MM3 (1.0-4.8) Monocytes # (Auto) 1.4 TH/MM3 (0-0.9) Eosinophils # (Auto) 0.4 TH/MM3 (0-0.4) Basophils # (Auto) 0.1 TH/MM3 (0-0.2) CBC Comment DIFF FINAL Differential Comment Result Diagram: 06/01/17 0908 05/30/17 0612 Gaston Barillas MD Jun 01, 2017 10:30
[2017-06-01 10:34] LABS: BICARBONATE 30.9 MEQ/L (21.0-32.0); POTASSIUM 3.8 MEQ/L (3.5-5.1)
[2017-06-01] MEDS: SODIUM CHLOR 0.9% 1000 ML INJ 1,000 ML IV SCH ×2 (11:43→22:00)
[2017-06-01] MEDS: ACETAMINOPHEN/HYDROcodone 325 MG/5 MG TAB PO PRN (13:04)
[2017-06-02 00:27] VITALS: BP 139/81; PULSE 67; RESP 18; TEMP 97.1; O2SAT 98
[2017-06-02] MEDS: ACETAMINOPHEN/HYDROcodone 325 MG/5 MG TAB PO PRN ×2 (03:35→21:50)
--- NOTE | 2017-06-02 06:29 | HHI.PR ---
Subjective Remarks Follow up for dysphagia. Patient is s/p EGD with dilatation. No fever, chills. Wants to try to eat soft food. Objective Vitals Vital Signs Date Time Temp Pulse Resp B/P Pulse Ox O2 Delivery O2 Flow Rate FiO2 06/02/17 00:27 97.1 67 18 139/81 98 06/01/17 20:45 96.4 52 18 156/87 96 06/01/17 19:06 98.0 59 20 155/82 97 06/01/17 16:10 98.0 57 18 115/73 95 06/01/17 13:30 06/01/17 12:00 98.3 52 18 121/74 95 06/01/17 10:07 06/01/17 08:15 98.2 56 16 117/71 93 I/O 06/01/17 06/01/17 06/01/17 06/02/17 06/02/17 06/02/17 07:00 15:00 23:00 07:00 15:00 23:00 Intake Total 240 ml Balance 240 ml Intake Oral 240 ml # Voids 1 # Bowel Movements 0 Result Diagram: 06/01/17 0908 06/01/17 0908 Imaging Last Impressions Barium Swallow X-Ray 05/30/17 0000 Signed Impressions: Service Date/Time: May 10:17 - CONCLUSION: No significant change. Apparent distal esophageal stricture measuring up to approximately 1 cm. The esophagus remains dilated with residual food. Yonatan Rosenberg MD Chest X-Ray 05/29/17 0955 Signed Impressions: Service Date/Time: Monday, May 29, 2017 10:06 - CONCLUSION: 1. COPD changes. 2. No free air or pleural effusion identified. Mook Palacios MD Objective Remarks GENERAL: AOX3, NAD. SKIN: Warm and dry. HEAD: Normocephalic. EYES: No scleral icterus. No injection or drainage. NECK: Supple, trachea midline. No JVD or lymphadenopathy. CARDIOVASCULAR: Regular rate and rhythm without murmurs, gallops, or rubs. RESPIRATORY: Breath sounds equal bilaterally. No accessory muscle use. GASTROINTESTINAL: Abdomen soft, non-tender, nondistended. MUSCULOSKELETAL: No cyanosis, or edema. BACK: Nontender without obvious deformity. No CVA tenderness. Procedures 05/29/17 - EGD with dilatation A/P Problem List: (1) Esophageal stricture ICD Code: K22.2 - Stricture of esophagus Status: Acute (2) S/P dilatation of esophageal stricture ICD Code: Z98.890 - Other specified postprocedural states; Z87.19 - Personal history of other diseases of the digestive system Status: Acute Assessment and Plan 56-year-old male with history of achalasia, Lizzy fundoplication, esophagomyotomy, esophageal stricture s/p dilatation 2014, presents with a 5 day history of dysphagia with liquids and solids. Esophageal Stricture, Dysphagia: Barium swallow 05/29 showed apparent distal esophageal stricture; esophagus remains diffusely dilated with residual food. -GI consulted, EGD 05/29 showed esophageal stricture, dilatation performed, cleared for discharge. -Attempted discharge post dilatation however patient did not tolerate oral intake and vomited shortly after -Repeat Barium Swallow 05/30 showed no significant change; apparent distal esophageal stricture measuring up to approximately 1cm; esophagus dilated with residual food -GI and Gen surgery (Dr. Gonzalez) following. -Will change diet to soft diet today. -continue supportive treatment with IVF, antiemetics prn, and pain control prn - Surgery is not favored at this point. If patient can tolerate soft food, we can potentially discharge him. - May need a repeat EGD with dilation per Gen Surgery. DVT Prophylaxis: teds/SCDs, Ambulation. Aminta Rodriguez DO Jun 02, 2017 06:29
[2017-06-02 07:44] VITALS: BP 148/85; PULSE 63; RESP 16; TEMP 96.3; O2SAT 96
[2017-06-02] MEDS: DOCUSATE SODIUM 50 MG/SENNA 8.6 MG TAB PO SCH ×2 (08:07→20:04)
[2017-06-02] MEDS: SODIUM CHLORIDE 0.9% FLUSH 10 ML FLUSH IV FLUSH SCH ×2 (08:08→20:04)
[2017-06-02] MEDS: SODIUM CHLOR 0.9% 1000 ML INJ 1,000 ML IV SCH ×2 (08:08→17:33)
[2017-06-02 11:42] VITALS: BP 137/73; PULSE 57; RESP 16; TEMP 97.7; O2SAT 97
--- NOTE | 2017-06-02 14:16 | HHI.GIFU ---
Subjective Remarks Tolerating diet better and requesting soft diet. Objective Vitals I&O Vital Signs Date Time Temp Pulse Resp B/P (MAP) Pulse Ox O2 Delivery O2 Flow Rate FiO2 06/02/17 11:42 97.7 57 16 137/73 (94) 97 06/02/17 07:44 96.3 63 16 148/85 (106) 96 06/02/17 00:27 97.1 67 18 139/81 (100) 98 06/01/17 20:45 96.4 52 18 156/87 (110) 96 06/01/17 19:06 98.0 59 20 155/82 (106) 97 06/01/17 16:10 98.0 57 18 115/73 (87) 95 I/O 06/01/17 06/01/17 06/01/17 06/02/17 06/02/17 06/02/17 07:00 15:00 23:00 07:00 15:00 23:00 Intake Total 240 ml 240 ml 1308 ml Balance 240 ml 240 ml 1308 ml Intake Oral 240 ml 240 ml IV Total 1308 ml # Voids 1 5 # Bowel Movements 0 0 Physical Exam HEENT: Normocephalic; atraumatic; no jaundice. CHEST: CTA CARDIAC: RRR ABDOMEN: Soft, nondistended, nontender; no hepatosplenomegaly; bowel sounds are present in all four quadrants. EXTREMITIES: No clubbing, cyanosis, or edema. SKIN: Normal; no rash; no jaundice. FROG CATCHER: No focal deficits; alert and oriented times three. Assessment and Plan Plan ASSESSMENT - Esophageal stricture, dysphagia. Barium Swallow X-Ray (05/29/17)----> 1. Apparent distal esophageal stricture again noted. 2. The esophagus remains diffusely mildly dilated. There is residual food. S/P EGD with esophageal dilation with an achalasia balloon dilator (05/29/17)----> Esophagus this appeared to be unremarkable there was a tightness at the end of the esophagus but it was traversable with minimal resistance the barium swallow had shown almost a bird beak configuration, s/p dilatation using the achalasia balloon size 30 mm post dilatation, normal stomach, duodenum. Pt did not tolerate dinner last night- rice and a biscuit became lodged and he vomited this back up. Rpt. Barium Swallow (05/30/17)----> No significant change. Apparent distal esophageal stricture measuring up to approximately 1 cm. The esophagus remains dilated with residual food. Dr. Barillas following, Pt continues to have difficulty swallowing- only able to take ensure and reports this takes >30 minutes to get down. Intermittent epigastric pain associated with trying to eat. Dr. Barillas's recommendations noted and appreciated - Hx Achalasia. S/P unsuccessful botox. S/P Heller myotomy and revision for dysphagia in [address] Barillas PLAN: - Diet as tolerated - Dr. Barillas's recommendations noted and appreciated - Supportive care - Further recommendations to follow. Zane Amezcua MD Jun 02, 2017 14:16
[2017-06-02 15:50] VITALS: BP 120/72; PULSE 64; RESP 16; TEMP 98.1; O2SAT 97
[2017-06-02 20:38] VITALS: BP 172/84; PULSE 66; RESP 18; TEMP 96; O2SAT 96
[2017-06-03 00:23] VITALS: BP 149/84; PULSE 60; RESP 18; TEMP 97.2; O2SAT 99
[2017-06-03] MEDS: SODIUM CHLOR 0.9% 1000 ML INJ 1,000 ML IV SCH ×3 (04:00→22:08)
[2017-06-03 08:00] VITALS: BP 144/86; PULSE 60; RESP 16; TEMP 96.9; O2SAT 96
[2017-06-03] MEDS: SODIUM CHLORIDE 0.9% FLUSH 10 ML FLUSH IV FLUSH SCH ×2 (08:18→21:00)
[2017-06-03] MEDS: DOCUSATE SODIUM 50 MG/SENNA 8.6 MG TAB PO SCH ×2 (08:19→21:00)
[2017-06-03 12:00] VITALS: BP 138/83; PULSE 63; RESP 16; TEMP 97.8; O2SAT 94
--- NOTE | 2017-06-03 12:28 | HHI.PR ---
Subjective Remarks Follow up for dysphagia. Patient is s/p EGD with dilatation. Mr. Coronel reports problem with solid food. He is able to tolerate liquid including ensure well. Requests 2 ensure bottles per meals. No fever, chills. Objective Vitals Vital Signs Date Time Temp Pulse Resp B/P (MAP) Pulse Ox O2 Delivery O2 Flow Rate FiO2 06/03/17 00:23 97.2 60 18 149/84 (105) 99 06/02/17 20:38 96.0 66 18 172/84 (113) 96 06/02/17 15:50 98.1 64 16 120/72 (88) 97 I/O 06/02/17 06/02/17 06/02/17 06/03/17 06/03/17 06/03/17 07:00 15:00 23:00 07:00 15:00 23:00 Intake Total 240 ml 1968 ml 478 ml 360 ml Balance 240 ml 1968 ml 478 ml 360 ml Intake Oral 240 ml 660 ml 240 ml 360 ml IV Total 1308 ml 238 ml # Voids 5 4 4 5 # Bowel Movements 0 0 0 0 Result Diagram: 06/01/17 0908 06/01/17 0908 Imaging Last Impressions Barium Swallow X-Ray 05/30/17 0000 Signed Impressions: Service Date/Time: May 10:17 - CONCLUSION: No significant change. Apparent distal esophageal stricture measuring up to approximately 1 cm. The esophagus remains dilated with residual food. Yonatan Rosenberg MD Chest X-Ray 05/29/17 0955 Signed Impressions: Service Date/Time: Monday, May 29, 2017 10:06 - CONCLUSION: 1. COPD changes. 2. No free air or pleural effusion identified. Mook Palacios MD Objective Remarks GENERAL: AOX3, NAD. SKIN: Warm and dry. HEAD: Normocephalic. EYES: No scleral icterus. No injection or drainage. NECK: Supple, trachea midline. No JVD or lymphadenopathy. CARDIOVASCULAR: Regular rate and rhythm without murmurs, gallops, or rubs. RESPIRATORY: Breath sounds equal bilaterally. No accessory muscle use. GASTROINTESTINAL: Abdomen soft, non-tender, nondistended. MUSCULOSKELETAL: No cyanosis, or edema. BACK: Nontender without obvious deformity. No CVA tenderness. Procedures 8/16/17 - EGD with dilatation A/P Problem List: (1) Esophageal stricture ICD Code: K22.2 - Stricture of esophagus Status: Acute (2) S/P dilatation of esophageal stricture ICD Code: Z98.890 - Other specified postprocedural states; Z87.19 - Personal history of other diseases of the digestive system Status: Acute Assessment and Plan 56-year-old male with history of achalasia, Lizzy fundoplication, esophagomyotomy, esophageal stricture s/p dilatation 2014, presents with a 5 day history of dysphagia with liquids and solids. Esophageal Stricture, Dysphagia: Barium swallow 05/29 showed apparent distal esophageal stricture; esophagus remains diffusely dilated with residual food. -GI consulted, EGD 05/29 showed esophageal stricture, dilatation performed, cleared for discharge. -Attempted discharge post dilatation. However, patient did not tolerate oral intake and vomited shortly after eating. -Repeat Barium Swallow 05/30 showed no significant change; apparent distal esophageal stricture measuring up to approximately 1cm; esophagus dilated with residual food -GI and Gen surgery (Dr. Gonzalez) following. - continue supportive treatment with IVF, antiemetics prn, and pain control prn - Repeat EGD with dilatation was offered. However, patient decided against it for now as he is not sure how beneficial it really will be for him. - He plans to somehow go to [facility] in future to get an evaluation done. Currently, he is trying to obtain insurance through Affordable Care Act ( Obamacare). He signed papers. - Will discharge patient in the AM. DVT Prophylaxis: teds/SCDs, Ambulation. Aminta Rodriguez DO Jun 03, 2017 12:28
[2017-06-03 16:00] VITALS: BP 142/85; PULSE 56; RESP 16; TEMP 97.2; O2SAT 99
--- NOTE | 2017-06-03 18:10 | HHI.GIFU ---
Subjective Remarks Slightly improved. Is tolerating small amounts of mashed potatoes and gravy, carrot cake, and ensure- but states that these are still very slow to pass down. No abdominal pain. States he was told that he would have another dilatation prior to discharge. (Ceci Tamayo) Objective Vitals I&O Vital Signs Date Time Temp Pulse Resp B/P (MAP) Pulse Ox O2 Delivery O2 Flow Rate FiO2 06/03/17 00:23 97.2 60 18 149/84 (105) 99 06/02/17 20:38 96.0 66 18 172/84 (113) 96 I/O 06/02/17 06/02/17 06/02/17 06/03/17 06/03/17 06/03/17 07:00 15:00 23:00 07:00 15:00 23:00 Intake Total 240 ml 1968 ml 478 ml 360 ml Balance 240 ml 1968 ml 478 ml 360 ml Intake Oral 240 ml 660 ml 240 ml 360 ml IV Total 1308 ml 238 ml # Voids 5 4 4 5 # Bowel Movements 0 0 0 0 Physical Exam HEENT: Normocephalic; atraumatic; no jaundice. CHEST: CTA CARDIAC: RRR ABDOMEN: Soft, nondistended, nontender; no hepatosplenomegaly; bowel sounds are present in all four quadrants. EXTREMITIES: No clubbing, cyanosis, or edema. SKIN: Normal; no rash; no jaundice. TOLL RELIEF OPERATOR: No focal deficits; alert and oriented times three. (Ceci Tamayo) Assessment and Plan Plan ASSESSMENT - Esophageal stricture, dysphagia. Barium Swallow X-Ray (05/29/17)----> 1. Apparent distal esophageal stricture again noted. 2. The esophagus remains diffusely mildly dilated. There is residual food. S/P EGD with esophageal dilation with an achalasia balloon dilator (05/29/17)----> Esophagus this appeared to be unremarkable there was a tightness at the end of the esophagus but it was traversable with minimal resistance the barium swallow had shown almost a bird beak configuration, s/p dilatation using the achalasia balloon size 30 mm post dilatation, normal stomach, duodenum. Pt did not tolerate dinner last night- rice and a biscuit became lodged and he vomited this back up. Rpt. Barium Swallow (05/30/17)----> No significant change. Apparent distal esophageal stricture measuring up to approximately 1 cm. The esophagus remains dilated with residual food. Pt is now tolerating small amounts of mashed potatoes and gravy, carrot cake, ensure- but c/o that it is still taking 45 minutes to pass liquids/food. Per CVT note, feels that surgery should be last resort and to consider repeat dilatation vs. covered metal stent vs. laser ablation of the Schatzki ring prior to considering any surgery. Will encourage ensure. - Hx Achalasia. S/P unsuccessful botox. S/P Heller myotomy and revision for dysphagia [place] [address] Barillas PLAN: - Soft diet with 2 ensure with each meal - Supportive care - Further recommendations to follow. - Pt seen and examined by Dr. Amezuca and myself and this note is written on his behalf (Ceci Tamayo) Physician Comments As above, please notify us if needed. (Zane Amezcua MD) Ceci Tamayo Jun 03, 2017 18:10 Zane Amezcua MD Jun 07, 2017 06:41
[2017-06-03 20:45] VITALS: BP 146/82; PULSE 61; RESP 17; TEMP 97.9; O2SAT 98
[2017-06-03] MEDS: ACETAMINOPHEN/HYDROcodone 325 MG/5 MG TAB PO PRN (22:07)
[2017-06-04 00:32] VITALS: BP 146/94; PULSE 72; RESP 17; TEMP 98.5; O2SAT 97
[2017-06-04 04:40] VITALS: BP 135/83; PULSE 60; RESP 17; TEMP 98.2; O2SAT 98
[2017-06-04 08:00] VITALS: BP 108/64; PULSE 67; RESP 16; TEMP 97.5; O2SAT 97
[2017-06-04] MEDS: DOCUSATE SODIUM 50 MG/SENNA 8.6 MG TAB PO SCH (09:00)
[2017-06-04] MEDS: SODIUM CHLORIDE 0.9% FLUSH 10 ML FLUSH IV FLUSH SCH (09:00)
[2017-06-04] MEDS: SODIUM CHLOR 0.9% 1000 ML INJ 1,000 ML IV SCH (10:00)
--- NOTE | 2017-06-04 10:02 | HHI.DS ---
Discharge Summary Admission Date Jun 01, 2017 at 14:20 Discharge Date: Jun 04, 2017 Admitting Diagnosis Esophageal stricture (1) Esophageal stricture ICD Code: K22.2 - Stricture of esophagus Status: Acute (2) S/P dilatation of esophageal stricture ICD Code: Z98.890 - Other specified postprocedural states; Z87.19 - Personal history of other diseases of the digestive system Status: Acute Procedures 05/29/17 - EGD with dilatation Brief History - From Admission Written by Lizzie Jones, acting as scribe for Dr. Rodriguez on 05/29/17 at 17:46. This note was transcribed by scribe LUI Grossman. I, Dr. Ho Rodriguez personally performed the history, physical exam, and medical decision making; and confirmed the accuracy of the information in the transcribed note. Authenticated by Dr. Ho Rodriguez on 05/29/17 at 23:32. 56-year-old male with history of achalasia, Lizzy fundoplication, esophagomyotomy, esophageal stricture s/p dilatation 2014, presents with a 5 day history of dysphagia. The patient reports he ate his last normal meal on Thursday 05/24. On Friday 05/25, he started having dysphagia with both liquids and solids, associated with subsequent nausea and vomiting. He also developed worsening epigastric abdominal pain especially after meals. He does report an episode of diarrhea on Saturday but none since. He has a history of esophageal stricture s/p dilatation in and he has been doing very well since then. He believes his stricture has returned. Denies any recent fevers/chills. Denies any chest pain, shortness of breath, or urinary complaints. He was seen by gastroenterology shortly after admission and taken to GI lab, underwent esophageal stricture dilatation. He is now seen post procedure. He has tolerated liquids well. His abdominal pain has resolved and he denies any dysphagia. He has been cleared for discharge by gastroenterology. The patient will be attempting dinner, and will be discharged if he tolerates well. The patient is very happy with this plan and feels ready for discharge. CBC/BMP: 06/01/17 0908 06/01/17 0908 Imaging Last Impressions Barium Swallow X-Ray 05/30/17 0000 Signed Impressions: Service Date/Time: May 10:17 - CONCLUSION: No significant change. Apparent distal esophageal stricture measuring up to approximately 1 cm. The esophagus remains dilated with residual food. Yonatan Rosenberg MD Chest X-Ray 05/29/17 0955 Signed Impressions: Service Date/Time: Monday, May 29, 2017 10:06 - CONCLUSION: 1. COPD changes. 2. No free air or pleural effusion identified. Mook Palacios MD PE at Discharge GENERAL: AOX3, NAD. SKIN: Warm and dry. HEAD: Normocephalic. EYES: No scleral icterus. No injection or drainage. NECK: Supple, trachea midline. No JVD or lymphadenopathy. CARDIOVASCULAR: Regular rate and rhythm without murmurs, gallops, or rubs. RESPIRATORY: Breath sounds equal bilaterally. No accessory muscle use. GASTROINTESTINAL: Abdomen soft, non-tender, nondistended. MUSCULOSKELETAL: No cyanosis, or edema. BACK: Nontender without obvious deformity. No CVA tenderness. Pt update on day of discharge Patient is doing well. He is tolerating liquid diet well. No fever, chills. He is trying to get into Affordable care act insurance. He plans to go to [facility]. Hospital Course 56-year-old male with history of achalasia, Lizzy fundoplication, esophagomyotomy, esophageal stricture s/p dilatation 2014, presents with a 5 day history of dysphagia with liquids and solids. Esophageal Stricture, Dysphagia: Barium swallow 05/29 showed apparent distal esophageal stricture; esophagus remains diffusely dilated with residual food. -GI consulted, EGD 05/29 showed esophageal stricture, dilatation performed, cleared for discharge. -Attempted discharge post dilatation. However, patient did not tolerate oral intake and vomited shortly after eating. -Repeat Barium Swallow 05/30 showed no significant change; apparent distal esophageal stricture measuring up to approximately 1cm; esophagus dilated with residual food -GI and Gen surgery (Dr. Gonzalez) following. - continue supportive treatment with IVF, antiemetics prn, and pain control prn - Repeat EGD with dilatation was offered. However, patient decided against it for now as he is not sure how beneficial it really will be for him. - He plans to somehow go to [facility] in future to get an evaluation done. Currently, he is trying to obtain insurance through Affordable Care Act ( [employer]). He signed papers. - Will discharge patient home today 06/04/2017. DVT Prophylaxis: teds/SCDs, Ambulation. Pt Condition on Discharge: Stable Discharge Disposition: Discharge Home Discharge Time: <= 30 minutes Discharge Instructions DIET: Follow Instructions for: As Tolerated, No Restrictions Activities you can perform: Regular-No Restrictions Follow up Referrals: Gastroenterology - 2 Weeks @ [facility] PCP Follow-up - 1 Week Continued Medications: Ranitidine (Zantac) 150 Mg Tab 150 MG PO DAILY for Reduce Stomach Acid, #30 TAB 0 Refills Aminta Rodriguez DO Jun 04, 2017 10:02
== END 2017-06-04 11:16 | disposition home or self-care (01) | DRG 392 ==
LOC: NEPD 09:31 → NEDA 12:57 → INTOOBSV 12:57 → NEDA 13:01 → UNDOADMIN 13:01 → NEPFCDU 16:35 → OBSVTOIN 06-01 14:20 → N06B 06-01 20:17
PROVIDERS: ADMIT Hospitalist; ATTEND Hospitalist
PROC: 0D738ZZ Dilation of Lower Esophagus, Via Natural or Artificial Opening Endoscopic (ICD-10-PCS; principal; 2017-05-29 14:42)
DX: K22.2 Esophageal obstruction (principal); F17.210 Nicotine dependence, cigarettes, uncomplicated; K59.00 Constipation, unspecified
CPT/HCPCS: 71010; 74230; 80048; 80053; 81001; 83690; 85025; 85610; 85730; 93005; 96361; 96374; 96375; C1769; C9113; G0378; J2270; J2370; J2405; J7030

== ENCOUNTER 2017-07-01 11:38 | Emergency (ER) | payer OTHER ==
[~2017-07-01] VITALS: Ht 167.6 cm; Wt 56.0 kg
[~2017-07-01 11:38] MED LIST changes: -PROT40TA PO; +ZANT150T2 PO
[2017-07-01 11:40] VITALS: BP 130/76; PULSE 66; RESP 20; TEMP 98.5; O2SAT 97
--- NOTE | 2017-07-01 12:14 | PD ---
HPI Chief Complaint: Musculoskeletal Complaint Time Seen by Provider: 12:04 Travel History International Travel<30 days: No Contact w/Intl Traveler<30days: No Traveled to known affect area: No History of Present Illness HPI 56-year-old male presents to the emergency Department with complaint of right shoulder pain after tripping over his own feet falling last night and landing on his shoulder. Denies hitting his head or loss consciousness. Denies neck pain or back pain. Denies anticoagulant. Denies chest pain, shortness of breath, abdominal pain, nausea, vomiting. Denies paresthesias, loss of sensation of the affected extremity. Reports decreased range motion of the right shoulder. Denies other extremity pain. Took ibuprofen last night for symptom management. Symptoms are mild in severity. Has no medical complaints. No known allergies. No other modifying factors or associated signs and symptoms. PFSH Past Medical History Asthma: No Blood Disorders: No Anxiety: No Depression: No Heart Rhythm Problems: No Cancer: No Cardiovascular Problems: No High Cholesterol: No Chemotherapy: No Chest Pain: No Congestive Heart Failure: No COPD: No Diabetes: No Diminished Hearing: No Endocrine: No Gastrointestinal Disorders: Yes (ESOPHAGEAL STRICTURE) Genitourinary: No Immune Disorder: No Musculoskeletal: Yes Neurologic: No Psychiatric: No Reproductive: No Respiratory: No Radiation Therapy: No Sleep Apnea: No Thyroid Disease: Yes Past Surgical History Abdominal Surgery: Yes (ACHALASIA. stomach muscle repair, mesh around esophagus ) Pacemaker: No Other Surgery: Yes (TENDON REPAIR LEFT HAND) Social History Alcohol Use: Yes (occ) Tobacco Use: Yes Substance Use: Yes (hx crack cocaine (x 25 years) "Clean x 12 years") Allergies-Medications (Allergen,Severity, Reaction): Coded Allergies: No Known Allergies (Unverified , 07/01/17) Reported Meds & Prescriptions Reported Meds & Active Scripts Active Reported Zantac (Ranitidine HCl) 150 Mg Tab 150 Mg PO DAILY Review of Systems Except as stated in HPI: all other systems reviewed are Neg Physical Exam Narrative GENERAL: Well-nourished, well-developed male patient, in no acute distress SKIN: Warm and dry. HEAD: Atraumatic. Normocephalic. EYES: Pupils equal and round. No scleral icterus. No injection or drainage. ENT: Mucosa pink and moist. Airway patent. NECK: Supple. Trachea midline. CARDIOVASCULAR: Regular rate. RESPIRATORY: Flat. MUSCULOSKELETAL: Right shoulder without erythema, edema, ecchymosis with some limited range of motion in less than 45 abduction; no obvious deformity; shoulders equal; joint stable. Right upper extremities supple and non-tense with 2+ radial pulse and sensory intact and without erythema or edema. No obvious deformities. No clubbing. No cyanosis. No edema. NEUROLOGICAL: Awake and alert. Oriented 3. No obvious cranial nerve deficits. Motor grossly within normal limits. Normal speech. PSYCHIATRIC: Appropriate mood and affect; insight and judgment normal. Data Data Last Documented VS Vital Signs Date Time Temp Pulse Resp B/P (MAP) Pulse Ox O2 Delivery O2 Flow Rate FiO2 07/01/17 11:40 98.5 66 20 130/76 (94) 97 Room Air Orders Orders Shoulder, Complete (>2vws) (07/01/17 12:02) Ibuprofen (Motrin) (07/01/17 12:15) Ibuprofen (Motrin) (07/01/17 12:15) MDM Medical Decision Making Medical Screen Exam Complete: Yes Emergency Medical Condition: Yes Medical Record Reviewed: Yes Differential Diagnosis Shoulder fracture, shoulder contusion, shoulder sprain, shoulder injury, fall Narrative Course 56-year-old male with right shoulder injury after mechanical fall last night. Denies hitting his head or loss of consciousness. Denies neck pain or back pain. Ibuprofen administered in the ER. A right shoulder x-ray ordered. 1316: Right shoulder x-ray concludes: Last 24 hours Impressions Shoulder X-Ray 07/01/17 1202 Signed Impressions: Service Date/Time: Saturday, July 01, 2017 12:36 - CONCLUSION: Anatomic alignment without fracture. Luis Palacios MD FACR Arm sling provided for support. Instructed patient to move shoulder frequently and only use sling as needed. Ibuprofen prescribed for home. Instructed patient to follow up with primary care provider. Patient verbalizes understanding and agreement with treatment plan. Patient is medically cleared and stable for discharge. Discussed reasons to return to the emergency department. Patient agrees with treatment plan. The patients vital signs are stable and the patient is stable for outpatient follow-up and treatment. Patient discharged home, stable and in no acute distress. Diagnosis Primary Impression: Fall Qualified Codes: W19.XXXA - Unspecified fall, initial encounter Additional Impression: Right shoulder injury Qualified Codes: S49.91XA - Unspecified injury of right shoulder and upper arm , initial encounter Referrals: Primary Care Physician Patient Instructions: Fall Prevention (ED), General Instructions, Shoulder Sprain (ED) Departure Forms: Tests/Procedures, Work Release Enter return to work date: Jul 08, 2017 Additional Instructions: Tylenol or ibuprofen as needed and as directed to reduce pain and inflammation Rest, ice, and compress extremity to decrease pain and inflammation Arm sling for support Avoid aggravating activity; increase activity as tolerated Follow-up with primary care provider Follow-up with orthopedics as needed Return to the emergency department immediately with worsening symptoms Med/Other Pt SpecificInfo: Prescription(s) given Scripts Ibuprofen (Ibuprofen) 800 Mg Tab 800 MG PO Q6HR Y for PAIN, #30 TAB 0 Refills Prov: Anitra Mckinnon 07/01/17 Disposition: 01 DISCHARGE HOME Condition: Stable Anitra Mckinnon Jul 01, 2017 12:08
[2017-07-01] MEDS ORDERED: IBUPROFEN 800 MG TAB ONE (12:15)
[2017-07-01] MEDS ORDERED: IBUPROFEN 800 MG TAB PO ONE (12:15)
--- NOTE | 2017-07-01 13:00 | RADRPT ---
EXAM DATE/TIME: 07/01/2017 12:36 [facility] COMPARISON: No previous studies available for comparison. INDICATIONS : Right shoulder pain after falling on shoulder last night. MEDICAL HISTORY : Smoker. SURGICAL HISTORY : None. ENCOUNTER: Initial ACUITY: 2 days PAIN SCORE: 10/10 LOCATION: Right humeral head. FINDINGS: There are degenerative changes at the AC joint. Alignment is anatomic. Fracture is not appreciated. CONCLUSION: Anatomic alignment without fracture. Luis Palacios MD FACR on July 01, 2017 at 12:40 Board Certified Radiologist. This report was verified electronically.
[2017-07-01] MEDS ORDERED: IBUP800T23 PO (13:16)
== END 2017-07-01 14:06 | disposition home or self-care (01) ==
LOC: NEPK 11:38
DX: S49.91XA Unspecified injury of right shoulder and upper arm, initial encounter (principal); E07.9 Disorder of thyroid, unspecified; Z72.0 Tobacco use; Z87.19 Personal history of other diseases of the digestive system; Z87.39 Personal history of other diseases of the musculoskeletal system and connective tissue; W01.0XXA Fall on same level from slipping, tripping and stumbling without subsequent striking against object, initial encounter
CPT/HCPCS: 73030; 99283